=== PATIENT | male | born 1960 | race Caucasian/White ===

== ENCOUNTER 2022-01-17 13:48 | Inpatient (IN) ==
[2022-01-17 18:28] LABS: Basophils % 0.2 %; Eosinophils # 0.1 K/mcL (0.0-0.6); Eosinophils % 0.9 %; Hematocrit 26.3 % (37.5-50.1); Hemoglobin 8.7 g/dL (12.9-16.9); Immature Granulocytes % 0.4 % (0-4); Lymphocytes # 1.3 K/mcL (0.6-4.6); Lymphocytes % 12.6 %; Mean Corpuscular HGB Conc 33.1 g/dL (31.6-35.5); Mean Corpuscular Hemoglobin 27.4 pg (28.0-33.3); Mean Platelet Volume 10.1 fL (9.4-12.4); Monocytes # 0.8 K/mcL (0.0-1.3); Monocytes % 7.2 %; Neutrophils # 8.3 K/mcL (1.6-8.9); Platelet Count 303 K/mcL (140-400); Red Blood Count 3.17 M/mcL (4.19-5.50); Red Cell Distribution Width 14.4 % (11.5-14.5); Segmented Neutrophils % 78.7 %; White Blood Count 10.6 K/mcL (4.3-11.1)
[2022-01-17] MEDS ORDERED: Clindamycin 600 MG/50 ML 600 MG/50 ML IV.SOLN IVPB STA (18:31)
[2022-01-17 18:51] LABS: Alanine Aminotransferase 16 Units/L (7-52); Albumin 2.6 g/dL (3.5-5.7); Albumin/Globulin Ratio 0.7 (1.1-2.2); Alkaline Phosphatase 327 Units/L (34-104); Aspartate Amino Transferase 24 Units/L (13-39); BUN/Creatinine Ratio 23 (6-26); Bilirubin,Direct 0.1 mg/dL (0.0-0.2); Bilirubin,Indirect 0.6 mg/dL (0.0-1.0); Bilirubin,Total 0.7 mg/dL (0.3-1.0); Blood Urea Nitrogen 29 mg/dL (6-20); C-Reactive Protein 95 mg/L (Less than 10); Carbon Dioxide 33 mEq/L (23-29); Chloride 95 mEq/L (98-107); Globulin 3.6 g/dL (2.4-3.5); Glucose 186 mg/dL (70-105); Osmolality,Calculated 291 (280-300); Sodium 135 mEq/L (136-145); Total Protein 6.2 g/dL (6.4-8.9); eGFR For African Americans > 60 (> 60); eGFR For Non-African Americans 58 (> 60)
[2022-01-17] MEDS ORDERED: hydrALAZINE 25 MG TABLET PO ONE (19:18)
[2022-01-17] MEDS ORDERED: Potassium Effervescent 25 MEQ TABLET.EFF PO ONE (19:27)
[2022-01-17] MEDS ORDERED: lisinopriL 20 MG TABLET PO ONE (20:45)
[2022-01-17] MEDS ORDERED: Cefepime HCl 2,000 MG in 0.9 % Sodium Chloride 10 ML IVP ONE (21:11)
[2022-01-17] MEDS ORDERED: Ondansetron ODT 4 MG TAB.RAPDIS SL PRN (21:36)
[2022-01-17] MEDS ORDERED: Melatonin 3 MG TABLET PO PRN (21:36)
[2022-01-17] MEDS ORDERED: Naloxone 0.4 MG/ML INJ IVP PRN (21:36)
[2022-01-17] MEDS ORDERED: *HR* Dextrose 50 % in Water (Syg) 50 ML SYRINGE IVP PRN (21:37)
[2022-01-17] MEDS ORDERED: D5% in Water 1,000 ML IVC PRN (21:37)
[2022-01-17] MEDS ORDERED: Dextrose Gel 15 GM/37.5 ML TUBE PO PRN ×2 (21:37)
[2022-01-17] MEDS ORDERED: *HR* Labetalol 20 MG/4 ML SYRINGE IVP ONE ×2 (21:41→21:56)
[2022-01-17] MEDS ORDERED: Insulin DETEMIR 100 UNIT/ML X5UNITS SUBQ SCH (21:45)
[2022-01-17] MEDS: Insulin LISPRO 300 UNITS/3 ML VIAL SUBQ SCH (23:10)
[2022-01-17] MEDS ORDERED: Furosemide 20 MG/2 ML VIAL IVP ONE (23:45)
[2022-01-18] MEDS ORDERED: Perflutren Lipid Microsphere 1.3 ML in 0.9 % Sodium Chloride 8.7 ML IVP PRN (02:26)
[2022-01-18 03:42] LABS: Hematocrit 25.3 % (37.5-50.1); Hemoglobin 8.5 g/dL (12.9-16.9); Mean Corpuscular HGB Conc 33.6 g/dL (31.6-35.5); Mean Corpuscular Hemoglobin 28.1 pg (28.0-33.3); Mean Corpuscular Volume 83.5 fL (83.0-100.0); Mean Platelet Volume 10.2 fL (9.4-12.4); Platelet Count 295 K/mcL (140-400); Red Blood Count 3.03 M/mcL (4.19-5.50); Red Cell Distribution Width 14.5 % (11.5-14.5); White Blood Count 8.6 K/mcL (4.3-11.1)
[2022-01-18 03:43] LABS: Basophils % 0.4 %; Eosinophils # 0.2 K/mcL (0.0-0.6); Eosinophils % 1.9 %; Hematocrit 25.5 % (37.5-50.1); Hemoglobin 8.4 g/dL (12.9-16.9); Immature Granulocytes % 0.6 % (0-4); Lymphocytes # 1.2 K/mcL (0.6-4.6); Lymphocytes % 14.2 %; Mean Corpuscular HGB Conc 32.9 g/dL (31.6-35.5); Mean Corpuscular Hemoglobin 27.3 pg (28.0-33.3); Mean Corpuscular Volume 82.8 fL (83.0-100.0); Mean Platelet Volume 9.9 fL (9.4-12.4); Monocytes # 0.7 K/mcL (0.0-1.3); Monocytes % 7.7 %; Neutrophils # 6.4 K/mcL (1.6-8.9); Platelet Count 274 K/mcL (140-400); Red Blood Count 3.08 M/mcL (4.19-5.50); Red Cell Distribution Width 14.4 % (11.5-14.5); Segmented Neutrophils % 75.2 %; White Blood Count 8.4 K/mcL (4.3-11.1)
[2022-01-18 03:49] LABS: INR 1.1; Prothrombin Time 11.7 Seconds (9.4-12.1)
[2022-01-18 04:04] LABS: BUN/Creatinine Ratio 22 (6-26); Blood Urea Nitrogen 30 mg/dL (6-20); Calcium 7.7 mg/dL (8.6-10.3); Carbon Dioxide 34 mEq/L (23-29); Chloride 97 mEq/L (98-107); Glucose 182 mg/dL (70-105); Iron 15 mcg/dL (65-175); Magnesium 1.5 mg/dL (1.6-2.6); Osmolality,Calculated 293 (280-300); Potassium 3.3 mEq/L (3.5-5.1); Sodium 136 mEq/L (136-145); eGFR For African Americans > 60 (> 60); eGFR For Non-African Americans 53 (> 60)
[2022-01-18 04:27] LABS: Folate 18.8 ng/mL (3.0-16.0)
[2022-01-18 04:59] LABS: Bacteria,Urine Few per hpf (None-Few); Bilirubin,Urine Negative (Negative); Blood,Urine Small (Negative); Clarity,Urine Clear (Clear); Color,Urine Colorless (Yellow); Glucose,Urine (UA) 100 mg/dL (Normal); Hyaline Casts,Urine Few per lpf (None Seen); Ketones,Urine Negative (Negative); Leukocyte Esterase,Urine Trace (Negative); Mucus,Urine Few per lpf (None-Few); Nitrite,Urine Negative (Negative); PH,Urine 6.5 pH Units (5.0-8.0); Protein,Urine 100 mg/dL (Neg-Trace); Specific Gravity,Urine 1.009 (1.010-1.025); Squamous Epithelial Cell,Urine Few per hpf (None-Few); Urobilinogen,Urine Normal (Normal)
[2022-01-18 05:28] LABS: Protein/Creatinine Ratio,Urine 5.53 mg/mg (0.00-0.20)
[2022-01-18] MEDS: *HR* Heparin 5,000 UNIT/ML VIAL SQ SCH ×3 (05:59→20:51)
[2022-01-18 06:16] LABS: % Iron Saturation 7 % (20-55); Transferrin 151 mg/dL (203-362)
[2022-01-18] MEDS: Insulin LISPRO 300 UNITS/3 ML VIAL SUBQ SCH ×3 (06:29→20:53)
[2022-01-18] MEDS ORDERED: hydrALAZINE 10 MG TABLET PO SCH (09:00)
[2022-01-18] MEDS ORDERED: hydroCHLOROthiazide 25 MG TABLET PO SCH (09:00)
[2022-01-18] MEDS: Aspirin Enteric Coated 81 MG Tablet PO SCH (09:06)
[2022-01-18] MEDS: lisinopriL 20 MG TABLET PO SCH ×2 (09:06→20:50)
[2022-01-18] MEDS: Cefepime HCl 1,000 MG in 0.9 % Sodium Chloride Mini Bag 100 ML IVPB SCH ×3 (09:07→23:45)
[2022-01-18] MEDS ORDERED: Gadolinium Contrast Agent (WT Based) IV PRN (09:34)
[2022-01-18] MEDS ORDERED: *HR* Labetalol 20 MG/4 ML SYRINGE IVP ONE (12:14)
[2022-01-18] MEDS ORDERED: hydrALAZINE 25 MG TABLET PO SCH (15:00)
[2022-01-18] MEDS: hydrALAZINE 25 MG TABLET PO SCH ×4 (15:04→20:50)
[2022-01-19] MEDS: *HR* Heparin 5,000 UNIT/ML VIAL SQ SCH ×2 (05:10→14:41)
[2022-01-19 05:15] LABS: Basophils % 0.4 %; Eosinophils # 0.2 K/mcL (0.0-0.6); Eosinophils % 2.8 %; Hematocrit 23.9 % (37.5-50.1); Hemoglobin 7.6 g/dL (12.9-16.9); Immature Granulocytes % 0.6 % (0-4); Lymphocytes # 0.9 K/mcL (0.6-4.6); Lymphocytes % 11.8 %; Mean Corpuscular HGB Conc 31.8 g/dL (31.6-35.5); Mean Corpuscular Hemoglobin 27.2 pg (28.0-33.3); Mean Corpuscular Volume 85.7 fL (83.0-100.0); Mean Platelet Volume 10.6 fL (9.4-12.4); Monocytes # 0.5 K/mcL (0.0-1.3); Monocytes % 7.4 %; Neutrophils # 5.6 K/mcL (1.6-8.9); Platelet Count 267 K/mcL (140-400); Red Blood Count 2.79 M/mcL (4.19-5.50); Red Cell Distribution Width 14.4 % (11.5-14.5); White Blood Count 7.2 K/mcL (4.3-11.1)
[2022-01-19 05:32] LABS: BUN/Creatinine Ratio 22 (6-26); Blood Urea Nitrogen 30 mg/dL (6-20); Calcium 7.7 mg/dL (8.6-10.3); Carbon Dioxide 30 mEq/L (23-29); Chloride 99 mEq/L (98-107); Glucose 390 mg/dL (70-105); Magnesium 1.9 mg/dL (1.6-2.6); Osmolality,Calculated 298 (280-300); Potassium 4.4 mEq/L (3.5-5.1); Sodium 133 mEq/L (136-145); eGFR For African Americans > 60 (> 60); eGFR For Non-African Americans 53 (> 60)
[2022-01-19 05:40] LABS: Prothrombin Time 11.1 Seconds (9.4-12.1)
[2022-01-19 08:37] LABS: Estimated Average Glucose 258 mg/dl; Hemoglobin A1C 10.6 %
[2022-01-19] MEDS: Insulin LISPRO 300 UNITS/3 ML VIAL SUBQ SCH ×5 (09:36→19:42)
[2022-01-19] MEDS: Aspirin Enteric Coated 81 MG Tablet PO SCH ×2 (10:00→14:21)
[2022-01-19] MEDS: lisinopriL 20 MG TABLET PO SCH ×3 (10:00→19:39)
[2022-01-19] MEDS: Cefepime HCl 1,000 MG in 0.9 % Sodium Chloride Mini Bag 100 ML IVPB SCH ×3 (10:02→17:58)
[2022-01-19] MEDS: hydrALAZINE 25 MG TABLET PO SCH ×3 (10:09→19:40)
[2022-01-19] MEDS: Iron Sucrose Complex 200 MG in 0.9 % Sodium Chloride 100 ML IVPB SCH (12:02)
[2022-01-19] MEDS ORDERED: Acetaminophen 325 MG TABLET PO PRN (17:09)
[2022-01-19] MEDS: *HR* OxyCODONE/APAP 5/325 TABLET PO PRN (17:58)
[2022-01-19 18:19] LABS: Adenovirus F 40/41 PCR Not detected (Not detect); Astrovirus PCR Not detected (Not detect); C.difficile Toxin A/B Gene PCR Not detected (Not detect); Campylobacter by PCR Not detected (Not detect); Cryptosporidium by PCR Not detected (Not detect); Cyclospora cayetanensis PCR Not detected (Not detect); E. coli O157 by PCR Not detected (Not detect); Entamoeba histolytica PCR Not detected (Not detect); Enteroaggregative E.coli(EAEC) Not detected (Not detect); Enteropathogenic E.coli(EPEC) Not detected (Not detect); Enterotoxigenic E.coli (ETEC) Not detected (Not detect); Giardia lamblia PCR Not detected (Not detect); Norovirus GI/GII PCR Not detected (Not detect); Plesiomonas shigelloides PCR Not detected (Not detect); Rotavirus A PCR Not detected (Not detect); Salmonella PCR Not detected (Not detect); Sapovirus PCR Not detected (Not detect); Shig/EnteroinvasiveE coli EIEC Not detected (Not detect); Shigalike tox-prod E coli STEC Not detected (Not detect); Vibrio PCR Not detected (Not detect); Vibrio cholerae PCR Not detected (Not detect); Yersinia enterocolitica PCR Not detected (Not detect)
[2022-01-19] MEDS: Insulin DETEMIR 100 UNIT/ML X5UNITS SUBQ SCH (19:41)
[2022-01-20 00:47] LABS: Basophils % 0.4 %; Eosinophils # 0.3 K/mcL (0.0-0.6); Hematocrit 24.4 % (37.5-50.1); Hemoglobin 7.9 g/dL (12.9-16.9); Immature Granulocytes % 0.5 % (0-4); Lymphocytes # 1.1 K/mcL (0.6-4.6); Lymphocytes % 13.2 %; Mean Corpuscular HGB Conc 32.4 g/dL (31.6-35.5); Mean Corpuscular Hemoglobin 27.5 pg (28.0-33.3); Monocytes # 0.7 K/mcL (0.0-1.3); Monocytes % 7.9 %; Neutrophils # 6.1 K/mcL (1.6-8.9); Platelet Count 290 K/mcL (140-400); Red Blood Count 2.87 M/mcL (4.19-5.50); Red Cell Distribution Width 14.1 % (11.5-14.5); White Blood Count 8.2 K/mcL (4.3-11.1)
[2022-01-20 01:06] LABS: BUN/Creatinine Ratio 22 (6-26); Blood Urea Nitrogen 32 mg/dL (6-20); Calcium 7.6 mg/dL (8.6-10.3); Carbon Dioxide 28 mEq/L (23-29); Chloride 99 mEq/L (98-107); Glucose 158 mg/dL (70-105); Magnesium 1.9 mg/dL (1.6-2.6); Osmolality,Calculated 284 (280-300); Potassium 3.7 mEq/L (3.5-5.1); Sodium 132 mEq/L (136-145); eGFR For African Americans > 60 (> 60); eGFR For Non-African Americans 50 (> 60)
[2022-01-20] MEDS: Cefepime HCl 1,000 MG in 0.9 % Sodium Chloride Mini Bag 100 ML IVPB SCH ×3 (01:54→17:03)
[2022-01-20] MEDS: Aspirin Enteric Coated 81 MG Tablet PO SCH (08:05)
[2022-01-20] MEDS: lisinopriL 20 MG TABLET PO SCH ×2 (08:06→21:19)
[2022-01-20] MEDS: hydrALAZINE 25 MG TABLET PO SCH ×3 (08:06→21:19)
[2022-01-20] MEDS: Insulin LISPRO 300 UNITS/3 ML VIAL SUBQ SCH ×3 (08:14→17:03)
[2022-01-20] MEDS: Iron Sucrose Complex 200 MG in 0.9 % Sodium Chloride 100 ML IVPB SCH (12:01)
[2022-01-20] MEDS: *HR* Labetalol 20 MG/4 ML SYRINGE IVP PRN (12:40)
[2022-01-20] MEDS: *HR* OxyCODONE/APAP 5/325 TABLET PO PRN (17:43)
[2022-01-20] MEDS: Insulin DETEMIR 100 UNIT/ML X5UNITS SUBQ SCH (19:31)
[2022-01-21] MEDS: Insulin LISPRO 300 UNITS/3 ML VIAL SUBQ SCH ×5 (01:07→20:43)
[2022-01-21] MEDS: Cefepime HCl 1,000 MG in 0.9 % Sodium Chloride Mini Bag 100 ML IVPB SCH (02:18)
[2022-01-21 03:06] LABS: Basophils % 0.2 %; Eosinophils # 0.3 K/mcL (0.0-0.6); Eosinophils % 3.8 %; Hematocrit 24.1 % (37.5-50.1); Hemoglobin 7.8 g/dL (12.9-16.9); Immature Granulocytes % 1.1 % (0-4); Lymphocytes % 12.5 %; Mean Corpuscular HGB Conc 32.4 g/dL (31.6-35.5); Mean Corpuscular Hemoglobin 27.9 pg (28.0-33.3); Mean Corpuscular Volume 86.1 fL (83.0-100.0); Mean Platelet Volume 10.6 fL (9.4-12.4); Monocytes # 0.7 K/mcL (0.0-1.3); Monocytes % 8.1 %; Platelet Count 298 K/mcL (140-400); Segmented Neutrophils % 74.3 %; White Blood Count 8.1 K/mcL (4.3-11.1)
[2022-01-21 03:25] LABS: Calcium 7.7 mg/dL (8.6-10.3); Potassium 3.8 mEq/L (3.5-5.1)
[2022-01-21] MEDS: *HR* Labetalol 20 MG/4 ML SYRINGE IVP PRN ×2 (05:36→18:42)
[2022-01-21] MEDS ORDERED: 0.9 % Sodium Chloride 1,000 ML IVC SCH (08:00)
[2022-01-21] MEDS: *HR* OxyCODONE/APAP 5/325 TABLET PO PRN ×2 (08:30→20:22)
[2022-01-21] MEDS: hydrALAZINE 25 MG TABLET PO SCH ×3 (08:30→20:19)
[2022-01-21] MEDS: Aspirin Enteric Coated 81 MG Tablet PO SCH (08:30)
[2022-01-21] MEDS ORDERED: amLODIPine 5 MG TABLET PO SCH (09:00)
[2022-01-21] MEDS: Cefepime HCl 2,000 MG in 0.9 % Sodium Chloride 10 ML IVP SCH ×2 (11:42→20:40)
[2022-01-21] MEDS ORDERED: *HR* FentaNYL (PF) 100 MCG/2 ML VIAL IVP PRN (15:21)
[2022-01-21] MEDS ORDERED: Lidocaine 1% 20 ML MDV ONE (16:20)
[2022-01-21] MEDS ORDERED: Vancomycin 1,000 MG VIAL ONE (16:25)
[2022-01-21] MEDS ORDERED: *HR* FentaNYL (PF) 100 MCG/2 ML VIAL ONE (16:27)
[2022-01-21] MEDS ORDERED: *HR* Propofol 200 MG/20 ML VIAL IVP ONE (16:27)
[2022-01-21] MEDS: Insulin DETEMIR 100 UNIT/ML X5UNITS SUBQ SCH (20:23)
[2022-01-21] MEDS ORDERED: Naloxone 0.4 MG/ML INJ IVP PRN (21:48)
[2022-01-21] MEDS ORDERED: *HR* Labetalol 20 MG/4 ML SYRINGE IVP PRN (21:48)
[2022-01-21] MEDS ORDERED: Acetaminophen 325 MG TABLET PO PRN (21:48)
[2022-01-21] MEDS ORDERED: Perflutren Lipid Microsphere 1.3 ML in 0.9 % Sodium Chloride 8.7 ML IVP PRN (21:48)
[2022-01-21] MEDS ORDERED: D5% in Water 1,000 ML IVC PRN (21:48)
[2022-01-21] MEDS ORDERED: Dextrose Gel 15 GM/37.5 ML TUBE PO PRN ×2 (21:48)
[2022-01-21] MEDS ORDERED: Melatonin 3 MG TABLET PO PRN (21:48)
[2022-01-21] MEDS ORDERED: *HR* Dextrose 50 % in Water (Syg) 50 ML SYRINGE IVP PRN (21:48)
[2022-01-21] MEDS ORDERED: Ondansetron ODT 4 MG TAB.RAPDIS SL PRN (21:48)
[2022-01-22 01:57] LABS: Basophils % 0.4 %; Eosinophils # 0.3 K/mcL (0.0-0.6); Hematocrit 23.7 % (37.5-50.1); Hemoglobin 7.4 g/dL (12.9-16.9); Immature Granulocytes % 0.9 % (0-4); Lymphocytes % 12.2 %; Mean Corpuscular HGB Conc 31.2 g/dL (31.6-35.5); Mean Corpuscular Hemoglobin 27.2 pg (28.0-33.3); Mean Corpuscular Volume 87.1 fL (83.0-100.0); Mean Platelet Volume 10.4 fL (9.4-12.4); Monocytes # 0.6 K/mcL (0.0-1.3); Monocytes % 7.1 %; Neutrophils # 6.3 K/mcL (1.6-8.9); Nucleated Red Blood Cells 0.4 /100 WBC (0); Platelet Count 269 K/mcL (140-400); Red Blood Count 2.72 M/mcL (4.19-5.50); Red Cell Distribution Width 14.2 % (11.5-14.5); Segmented Neutrophils % 76.4 %; White Blood Count 8.2 K/mcL (4.3-11.1)
[2022-01-22 02:13] LABS: BUN/Creatinine Ratio 23 (6-26); Blood Urea Nitrogen 32 mg/dL (6-20); Calcium 7.8 mg/dL (8.6-10.3); Carbon Dioxide 27 mEq/L (23-29); Chloride 103 mEq/L (98-107); Glucose 247 mg/dL (70-105); Osmolality,Calculated 295 (280-300); Potassium 4.3 mEq/L (3.5-5.1); Sodium 135 mEq/L (136-145); eGFR For African Americans > 60 (> 60); eGFR For Non-African Americans 52 (> 60)
[2022-01-22] MEDS: Cefepime HCl 2,000 MG in 0.9 % Sodium Chloride 10 ML IVP SCH ×2 (06:03→18:55)
[2022-01-22] MEDS: Aspirin Enteric Coated 81 MG Tablet PO SCH (08:26)
[2022-01-22] MEDS: NIFEdipine XL (24 HR) 60 MG TAB.ER.24 PO SCH (08:27)
[2022-01-22] MEDS: carvediloL 6.25 MG TABLET PO SCH ×2 (08:27→18:55)
[2022-01-22] MEDS: hydrALAZINE 25 MG TABLET PO SCH ×2 (08:27→15:17)
[2022-01-22] MEDS: Insulin LISPRO 300 UNITS/3 ML VIAL SUBQ SCH ×4 (08:31→20:48)
[2022-01-22] MEDS ORDERED: amLODIPine 5 MG TABLET PO SCH (09:00)
[2022-01-22] MEDS: *HR* OxyCODONE/APAP 5/325 TABLET PO PRN ×2 (15:21→22:39)
[2022-01-22] MEDS ORDERED: Ipratropium/Albuterol Neb 3 ML IH PRN (17:40)
[2022-01-22] MEDS: Insulin DETEMIR 100 UNIT/ML X5UNITS SUBQ SCH (20:47)
[2022-01-22] MEDS ORDERED: Insulin DETEMIR 100 UNIT/ML X5UNITS SUBQ SCH (21:00)
[2022-01-22] MEDS: Furosemide 40 MG/4 ML VIAL IVP SCH (22:40)
[2022-01-23 03:54] LABS: ABG Base Excess 1 mEq/L (-2 to 3); ABG HCO3 25 mEq/L (21-27); ABG Oxygen Saturation 95 % (95-98); ABG PCO2 37 mmHg (35-45); ABG PH 7.44 pH Units (7.32-7.45); ABG PO2 71 mmHg (85-104); ABG TCO2 26 mEq/L (20-26); Blood Gas Modality oxymask
[2022-01-23] MEDS: Cefepime HCl 2,000 MG in 0.9 % Sodium Chloride 10 ML IVP SCH ×2 (05:35→17:00)
[2022-01-23 06:28] LABS: Basophils % 0.2 %; Eosinophils # 0.3 K/mcL (0.0-0.6); Eosinophils % 3.4 %; Hematocrit 22.9 % (37.5-50.1); Hemoglobin 7.3 g/dL (12.9-16.9); Immature Granulocytes % 0.9 % (0-4); Lymphocytes # 1.2 K/mcL (0.6-4.6); Lymphocytes % 14.4 %; Mean Corpuscular HGB Conc 31.9 g/dL (31.6-35.5); Mean Corpuscular Hemoglobin 28.2 pg (28.0-33.3); Mean Corpuscular Volume 88.4 fL (83.0-100.0); Mean Platelet Volume 10.6 fL (9.4-12.4); Monocytes # 0.5 K/mcL (0.0-1.3); Monocytes % 5.6 %; Neutrophils # 6.2 K/mcL (1.6-8.9); Platelet Count 263 K/mcL (140-400); Red Blood Count 2.59 M/mcL (4.19-5.50); Red Cell Distribution Width 14.2 % (11.5-14.5); Segmented Neutrophils % 75.5 %; White Blood Count 8.2 K/mcL (4.3-11.1)
[2022-01-23 07:15] LABS: Magnesium 1.7 mg/dL (1.6-2.6); Potassium 4.7 mEq/L (3.5-5.1)
[2022-01-23] MEDS: Furosemide 40 MG/4 ML VIAL IVP SCH (07:28)
[2022-01-23] MEDS: carvediloL 6.25 MG TABLET PO SCH ×2 (07:28→17:01)
[2022-01-23] MEDS: NIFEdipine XL (24 HR) 60 MG TAB.ER.24 PO SCH (07:28)
[2022-01-23] MEDS: Aspirin Enteric Coated 81 MG Tablet PO SCH (07:28)
[2022-01-23] MEDS: Insulin LISPRO 300 UNITS/3 ML VIAL SUBQ SCH ×4 (07:34→20:40)
[2022-01-23 10:26] LABS: Adenovirus Not Detected (Not Detect); Bordetella Pertussis Not Detected (Not Detect); Chlamydophila pneumoniae Not Detected (Not Detect); Coronavirus 229E Not Detected (Not Detect); Coronavirus HKU1 Not Detected (Not Detect); Coronavirus NL63 Not Detected (Not Detect); Coronavirus OC43 Not Detected (Not Detect); Human Metapneumovirus Not Detected (Not Detect); Human Rhinovirus/Enterovirus DETECTED (Not Detect); Influenza A Subtype 2009 H1 Not Detected (Not Detect); Influenza B Not Detected (Not Detect); Mycoplasma pneumoniae Not Detected (Not Detect); Parainfluenza Virus 1 Not Detected (Not Detect); Parainfluenza Virus 2 Not Detected (Not Detect); Parainfluenza Virus 3 Not Detected (Not Detect); Parainfluenza Virus 4 Not Detected (Not Detect); Respiratory Syncytial Virus Not Detected (Not Detect); SARS-CoV-2 Not Detected (Not Detect)
[2022-01-23] MEDS: Insulin DETEMIR 100 UNIT/ML X5UNITS SUBQ SCH (20:41)
[2022-01-23] MEDS: *HR* OxyCODONE/APAP 5/325 TABLET PO PRN (21:20)
[2022-01-23 23:43] LABS: ABG Base Excess -1 mEq/L (-2 to 3); ABG HCO3 22 mEq/L (21-27); ABG Oxygen Saturation 82 % (95-98); ABG PCO2 31 mmHg (35-45); ABG PH 7.47 pH Units (7.32-7.45); ABG PO2 42 mmHg (85-104); ABG TCO2 23 mEq/L (20-26); Blood Gas Modality OXYMASK
[2022-01-24 02:17] LABS: Basophils % 0.4 %; Eosinophils # 0.3 K/mcL (0.0-0.6); Eosinophils % 2.3 %; Hematocrit 24.1 % (37.5-50.1); Hemoglobin 7.6 g/dL (12.9-16.9); Immature Granulocytes % 0.8 % (0-4); Lymphocytes # 1.1 K/mcL (0.6-4.6); Lymphocytes % 9.9 %; Mean Corpuscular HGB Conc 31.5 g/dL (31.6-35.5); Mean Corpuscular Hemoglobin 27.4 pg (28.0-33.3); Mean Platelet Volume 10.8 fL (9.4-12.4); Monocytes # 0.5 K/mcL (0.0-1.3); Monocytes % 4.8 %; Neutrophils # 9.1 K/mcL (1.6-8.9); Platelet Count 277 K/mcL (140-400); Red Blood Count 2.77 M/mcL (4.19-5.50); Red Cell Distribution Width 14.5 % (11.5-14.5); Segmented Neutrophils % 81.8 %; White Blood Count 11.1 K/mcL (4.3-11.1)
[2022-01-24 02:35] LABS: Calcium 8.2 mg/dL (8.6-10.3); Magnesium 1.6 mg/dL (1.6-2.6); Potassium 4.3 mEq/L (3.5-5.1)
[2022-01-24] MEDS: Cefepime HCl 2,000 MG in 0.9 % Sodium Chloride 10 ML IVP SCH ×2 (05:59→17:41)
[2022-01-24] MEDS ORDERED: *HR* Labetalol 20 MG/4 ML SYRINGE IVP ONE (07:32)
[2022-01-24] MEDS: NIFEdipine XL (24 HR) 60 MG TAB.ER.24 PO SCH (07:55)
[2022-01-24] MEDS: Insulin LISPRO 300 UNITS/3 ML VIAL SUBQ SCH ×4 (07:55→17:46)
[2022-01-24] MEDS: carvediloL 6.25 MG TABLET PO SCH ×2 (07:56→17:38)
[2022-01-24] MEDS: Furosemide 40 MG/4 ML VIAL IVP SCH (07:56)
[2022-01-24] MEDS: Aspirin Enteric Coated 81 MG Tablet PO SCH (07:56)
[2022-01-24 08:41] LABS: INR 1.1; Prothrombin Time 12.6 Seconds (9.4-12.1)
[2022-01-24 08:59] LABS: ABG Base Excess -2 mEq/L (-2 to 3); ABG HCO3 22 mEq/L (21-27); ABG Oxygen Saturation 91 % (95-98); ABG PCO2 32 mmHg (35-45); ABG PH 7.46 pH Units (7.32-7.45); ABG PO2 57 mmHg (85-104); ABG TCO2 23 mEq/L (20-26)
[2022-01-24] MEDS: MetroNIDAZOLE 500 MG/100 ML 500 MG/100 ML BAG IVPB SCH ×2 (12:08→20:14)
[2022-01-24] MEDS: Insulin DETEMIR 100 UNIT/ML X5UNITS SUBQ SCH ×2 (15:10→20:15)
[2022-01-24 19:01] LABS: RBC,Pleural Fluid < 2000 RBC/mcL
[2022-01-24 19:06] LABS: Appearance of Pleural Fl Clear (Clear)
[2022-01-24 19:31] LABS: Glucose,Pleural Fluid 267 mg/dL (No Ref Range); LDH,Pleural Fluid 41 Units/L (No Ref Range); Total Protein,Pleural Fluid < 2.0 g/dL
[2022-01-24 19:48] LABS: Basophils,Pleural Fluid 0 %; Eosinophils,Pleural Fluid 0 %
[2022-01-24] MEDS: *HR* OxyCODONE/APAP 5/325 TABLET PO PRN (22:22)
[2022-01-25] MEDS: Insulin LISPRO 300 UNITS/3 ML VIAL SUBQ SCH ×6 (00:03→20:28)
[2022-01-25 01:22] LABS: Basophils % 0.2 %; Eosinophils # 0.3 K/mcL (0.0-0.6); Hematocrit 23.6 % (37.5-50.1); Hemoglobin 7.4 g/dL (12.9-16.9); Immature Granulocytes % 0.7 % (0-4); Lymphocytes # 1.1 K/mcL (0.6-4.6); Lymphocytes % 12.1 %; Mean Corpuscular HGB Conc 31.4 g/dL (31.6-35.5); Mean Corpuscular Hemoglobin 27.6 pg (28.0-33.3); Mean Corpuscular Volume 88.1 fL (83.0-100.0); Mean Platelet Volume 10.7 fL (9.4-12.4); Monocytes # 0.4 K/mcL (0.0-1.3); Monocytes % 4.7 %; Neutrophils # 7.5 K/mcL (1.6-8.9); Platelet Count 270 K/mcL (140-400); Red Blood Count 2.68 M/mcL (4.19-5.50); Red Cell Distribution Width 14.8 % (11.5-14.5); Segmented Neutrophils % 79.3 %; White Blood Count 9.4 K/mcL (4.3-11.1)
[2022-01-25 01:35] LABS: Magnesium 1.6 mg/dL (1.6-2.6); Potassium 4.1 mEq/L (3.5-5.1)
[2022-01-25] MEDS: Cefepime HCl 2,000 MG in 0.9 % Sodium Chloride 10 ML IVP SCH ×2 (04:39→17:03)
[2022-01-25] MEDS: MetroNIDAZOLE 500 MG/100 ML 500 MG/100 ML BAG IVPB SCH ×3 (04:40→19:51)
[2022-01-25] MEDS: NIFEdipine XL (24 HR) 60 MG TAB.ER.24 PO SCH (08:59)
[2022-01-25] MEDS: Aspirin Enteric Coated 81 MG Tablet PO SCH (08:59)
[2022-01-25] MEDS: carvediloL 6.25 MG TABLET PO SCH ×2 (08:59→17:03)
[2022-01-25] MEDS: Insulin DETEMIR 100 UNIT/ML X5UNITS SUBQ SCH ×2 (09:02→20:28)
[2022-01-25] MEDS: *HR* OxyCODONE/APAP 5/325 TABLET PO PRN (17:03)
[2022-01-26] MEDS: MetroNIDAZOLE 500 MG/100 ML 500 MG/100 ML BAG IVPB SCH ×3 (04:17→20:17)
[2022-01-26 04:39] LABS: Basophils % 0.3 %; Eosinophils # 0.3 K/mcL (0.0-0.6); Eosinophils % 4.3 %; Hematocrit 23.4 % (37.5-50.1); Hemoglobin 7.2 g/dL (12.9-16.9); Immature Granulocytes % 1.2 % (0-4); Lymphocytes # 1.3 K/mcL (0.6-4.6); Lymphocytes % 19.3 %; Mean Corpuscular HGB Conc 30.8 g/dL (31.6-35.5); Mean Corpuscular Hemoglobin 27.5 pg (28.0-33.3); Mean Corpuscular Volume 89.3 fL (83.0-100.0); Mean Platelet Volume 11.2 fL (9.4-12.4); Monocytes # 0.4 K/mcL (0.0-1.3); Monocytes % 5.7 %; Neutrophils # 4.6 K/mcL (1.6-8.9); Platelet Count 262 K/mcL (140-400); Red Blood Count 2.62 M/mcL (4.19-5.50); Red Cell Distribution Width 15.1 % (11.5-14.5); Segmented Neutrophils % 69.2 %; White Blood Count 6.7 K/mcL (4.3-11.1)
[2022-01-26 05:02] LABS: Calcium 7.7 mg/dL (8.6-10.3); Magnesium 1.6 mg/dL (1.6-2.6); Potassium 4.4 mEq/L (3.5-5.1)
[2022-01-26] MEDS: Cefepime HCl 2,000 MG in 0.9 % Sodium Chloride 10 ML IVP SCH ×2 (05:55→18:52)
[2022-01-26] MEDS: carvediloL 6.25 MG TABLET PO SCH ×2 (09:38→16:34)
[2022-01-26] MEDS: NIFEdipine XL (24 HR) 60 MG TAB.ER.24 PO SCH (09:38)
[2022-01-26] MEDS: Aspirin Enteric Coated 81 MG Tablet PO SCH (09:38)
[2022-01-26] MEDS: Insulin DETEMIR 100 UNIT/ML X5UNITS SUBQ SCH ×2 (09:39→20:51)
[2022-01-26] MEDS: Insulin LISPRO 300 UNITS/3 ML VIAL SUBQ SCH ×4 (09:39→20:49)
[2022-01-26] MEDS: Isosorbide MONOnitrate (24 HR) 60 MG TAB.ER.24H PO SCH (12:03)
[2022-01-26] MEDS ORDERED: Cyanocobalamin (B-12) 1,000 MCG/ML VIAL SQ ONE (12:12)
[2022-01-26] MEDS: Lactobacillus 1 EACH CAP.SPRINK PO SCH (20:18)
[2022-01-27 03:37] LABS: Fluid Source for Albumin PLEURAL FL
[2022-01-27] MEDS: MetroNIDAZOLE 500 MG/100 ML 500 MG/100 ML BAG IVPB SCH ×2 (04:10→12:13)
[2022-01-27 05:15] LABS: Basophils % 0.4 %; Eosinophils # 0.3 K/mcL (0.0-0.6); Eosinophils % 3.5 %; Hematocrit 23.6 % (37.5-50.1); Hemoglobin 7.2 g/dL (12.9-16.9); Lymphocytes # 1.3 K/mcL (0.6-4.6); Lymphocytes % 16.6 %; Mean Corpuscular HGB Conc 30.5 g/dL (31.6-35.5); Mean Corpuscular Hemoglobin 27.2 pg (28.0-33.3); Mean Corpuscular Volume 89.1 fL (83.0-100.0); Mean Platelet Volume 10.5 fL (9.4-12.4); Monocytes # 0.5 K/mcL (0.0-1.3); Monocytes % 6.3 %; Neutrophils # 5.8 K/mcL (1.6-8.9); Platelet Count 253 K/mcL (140-400); Red Blood Count 2.65 M/mcL (4.19-5.50); Red Cell Distribution Width 15.5 % (11.5-14.5); Segmented Neutrophils % 72.2 %
[2022-01-27] MEDS: Cefepime HCl 2,000 MG in 0.9 % Sodium Chloride 10 ML IVP SCH (05:28)
[2022-01-27 05:35] LABS: Calcium 7.8 mg/dL (8.6-10.3); Magnesium 1.6 mg/dL (1.6-2.6); Potassium 4.2 mEq/L (3.5-5.1)
[2022-01-27] MEDS: Insulin LISPRO 300 UNITS/3 ML VIAL SUBQ SCH ×4 (08:16→21:18)
[2022-01-27] MEDS ORDERED: levoFLOXacin 250 MG TABLET PO SCH (09:00)
[2022-01-27] MEDS: carvediloL 6.25 MG TABLET PO SCH ×2 (09:01→17:32)
[2022-01-27] MEDS: Aspirin Enteric Coated 81 MG Tablet PO SCH (09:01)
[2022-01-27] MEDS: NIFEdipine XL (24 HR) 60 MG TAB.ER.24 PO SCH (09:01)
[2022-01-27] MEDS: Lactobacillus 1 EACH CAP.SPRINK PO SCH ×2 (09:01→21:13)
[2022-01-27] MEDS: Isosorbide MONOnitrate (24 HR) 60 MG TAB.ER.24H PO SCH (09:01)
[2022-01-27] MEDS: Insulin DETEMIR 100 UNIT/ML X5UNITS SUBQ SCH ×2 (09:01→21:19)
[2022-01-27] MEDS: levoFLOXacin 250 MG TABLET PO SCH (12:32)
[2022-01-27] MEDS: Miconazole 2% ointment 141 APPL/141 GM TUBE TP SCH ×2 (15:12→21:45)
[2022-01-27] MEDS: Furosemide 40 MG/4 ML VIAL IVP SCH (15:44)
[2022-01-27] MEDS: *HR* OxyCODONE/APAP 5/325 TABLET PO PRN (16:32)
[2022-01-27] MEDS ORDERED: Saline Nasal Spray 44 ML BOTTLE NS PRN (22:17)
[2022-01-28 03:10] LABS: Basophils % 0.3 %; Eosinophils # 0.3 K/mcL (0.0-0.6); Hematocrit 22.9 % (37.5-50.1); Immature Granulocytes % 1.3 % (0-4); Lymphocytes # 1.2 K/mcL (0.6-4.6); Lymphocytes % 18.7 %; Mean Corpuscular HGB Conc 30.6 g/dL (31.6-35.5); Mean Corpuscular Hemoglobin 27.2 pg (28.0-33.3); Mean Corpuscular Volume 89.1 fL (83.0-100.0); Mean Platelet Volume 11.1 fL (9.4-12.4); Monocytes # 0.4 K/mcL (0.0-1.3); Monocytes % 6.5 %; Neutrophils # 4.2 K/mcL (1.6-8.9); Platelet Count 240 K/mcL (140-400); Red Blood Count 2.57 M/mcL (4.19-5.50); Red Cell Distribution Width 15.3 % (11.5-14.5); Segmented Neutrophils % 68.2 %; White Blood Count 6.2 K/mcL (4.3-11.1)
[2022-01-28 03:29] LABS: Calcium 7.9 mg/dL (8.6-10.3); Magnesium 1.6 mg/dL (1.6-2.6); Potassium 4.2 mEq/L (3.5-5.1)
[2022-01-28] MEDS: Furosemide 40 MG/4 ML VIAL IVP SCH (08:59)
[2022-01-28] MEDS: Insulin DETEMIR 100 UNIT/ML X5UNITS SUBQ SCH (08:59)
[2022-01-28] MEDS: NIFEdipine XL (24 HR) 60 MG TAB.ER.24 PO SCH (09:00)
[2022-01-28] MEDS: Isosorbide MONOnitrate (24 HR) 60 MG TAB.ER.24H PO SCH (09:00)
[2022-01-28] MEDS: Lactobacillus 1 EACH CAP.SPRINK PO SCH (09:00)
[2022-01-28] MEDS: levoFLOXacin 250 MG TABLET PO SCH (09:00)
[2022-01-28] MEDS: Insulin LISPRO 300 UNITS/3 ML VIAL SUBQ SCH ×2 (09:00→12:29)
[2022-01-28] MEDS: Miconazole 2% ointment 141 APPL/141 GM TUBE TP SCH (09:00)
[2022-01-28] MEDS: Aspirin Enteric Coated 81 MG Tablet PO SCH (09:00)
[2022-01-28] MEDS: carvediloL 6.25 MG TABLET PO SCH (09:00)
[2022-01-28 11:15] VITALS: BP 169/81; PULSE 84; TEMP 97.4; O2SAT 92
== END 2022-01-28 14:02 | disposition home health service (06) | DRG 616 ==
LOC: 4WAOSI 13:48 → EMEROOARM 13:48 → SUATTDRO 21:26 → 4WAOSI 22:26 → SUATTDRO 01-20 15:11 → 3ANU 01-20 20:29
PROVIDERS: ADMIT Internal Medicine; ATTEND Pharmacist

== ENCOUNTER 2022-01-29 16:44 | Inpatient (IN) ==
[2022-01-29] MEDS ORDERED: Acetaminophen 325 MG TABLET PO PRN (21:49)
[2022-01-29] MEDS ORDERED: *HR* HYDROcodone/Acet 5/325 mg TABLET PO PRN (21:49)
[2022-01-29] MEDS ORDERED: Melatonin 3 MG TABLET PO PRN (21:49)
[2022-01-29] MEDS ORDERED: Naloxone 0.4 MG/ML INJ IVP PRN (21:49)
[2022-01-29] MEDS ORDERED: Ondansetron ODT 4 MG TAB.RAPDIS SL PRN (21:49)
[2022-01-29] MEDS ORDERED: *HR* OxyCODONE Immed Rel 5 MG TABLET PO PRN (21:49)
[2022-01-29] MEDS ORDERED: *HR* Dextrose 50 % in Water (Syg) 50 ML SYRINGE IVP PRN (21:57)
[2022-01-29] MEDS ORDERED: Dextrose Gel 15 GM/37.5 ML TUBE PO PRN ×2 (21:57)
[2022-01-29] MEDS ORDERED: D5% in Water 1,000 ML IVC PRN (21:57)
[2022-01-29] MEDS ORDERED: Insulin LISPRO 300 UNITS/3 ML VIAL SUBQ SCH (22:00)
[2022-01-30] MEDS: Insulin LISPRO 300 UNITS/3 ML VIAL SUBQ SCH ×3 (00:13→17:47)
[2022-01-30] MEDS ORDERED: Insulin DETEMIR 100 UNIT/ML X5UNITS SUBQ SCH ×5 (00:15→21:00)
[2022-01-30 00:24] LABS: Adenovirus Not Detected (Not Detect); Bordetella Pertussis Not Detected (Not Detect); Chlamydophila pneumoniae Not Detected (Not Detect); Coronavirus 229E Not Detected (Not Detect); Coronavirus HKU1 Not Detected (Not Detect); Coronavirus NL63 Not Detected (Not Detect); Coronavirus OC43 Not Detected (Not Detect); Human Metapneumovirus Not Detected (Not Detect); Human Rhinovirus/Enterovirus Not Detected (Not Detect); Influenza A Subtype 2009 H1 Not Detected (Not Detect); Influenza B Not Detected (Not Detect); Mycoplasma pneumoniae Not Detected (Not Detect); Parainfluenza Virus 1 Not Detected (Not Detect); Parainfluenza Virus 2 Not Detected (Not Detect); Parainfluenza Virus 3 Not Detected (Not Detect); Parainfluenza Virus 4 Not Detected (Not Detect); Respiratory Syncytial Virus Not Detected (Not Detect); SARS-CoV-2 Not Detected (Not Detect)
[2022-01-30 01:07] LABS: Basophils % 0.1 %; Eosinophils % 0.2 %; Hematocrit 23.7 % (37.5-50.1); Hemoglobin 6.9 g/dL (12.9-16.9); Immature Granulocytes % 1.3 % (0-4); Lymphocytes # 0.7 K/mcL (0.6-4.6); Lymphocytes % 8.3 %; Mean Corpuscular HGB Conc 29.1 g/dL (31.6-35.5); Mean Corpuscular Hemoglobin 28.2 pg (28.0-33.3); Mean Corpuscular Volume 96.7 fL (83.0-100.0); Mean Platelet Volume 11.4 fL (9.4-12.4); Monocytes # 0.2 K/mcL (0.0-1.3); Monocytes % 2.4 %; Neutrophils # 7.2 K/mcL (1.6-8.9); Platelet Count 218 K/mcL (140-400); Red Blood Count 2.45 M/mcL (4.19-5.50); Red Cell Distribution Width 14.8 % (11.5-14.5); Segmented Neutrophils % 87.7 %; White Blood Count 8.3 K/mcL (4.3-11.1)
[2022-01-30 01:29] LABS: Calcium 7.6 mg/dL (8.6-10.3); Magnesium 1.8 mg/dL (1.6-2.6); Phosphorous 6.5 mg/dL (2.7-4.5); Potassium 4.9 mEq/L (3.5-5.1)
[2022-01-30 01:36] LABS: Calcium 7.7 mg/dL (8.6-10.3); Potassium 4.9 mEq/L (3.5-5.1)
[2022-01-30] MEDS ORDERED: Insulin Regular, Human 100 UNIT/ML IV PRN ×3 (06:37→07:54)
[2022-01-30] MEDS ORDERED: D5% in 0.45% NACL w KCl 20 MEQ/1,000 ML MLS IVC PRN ×2 (06:37→07:54)
[2022-01-30] MEDS ORDERED: D5% in 0.45% NACL 1,000 ML IVC PRN (06:37)
[2022-01-30] MEDS ORDERED: Insulin Regular, Human 100 UNIT/ML IV ONE (06:37)
[2022-01-30] MEDS ORDERED: *HR* Dextrose 50 % in Water (Syg) 50 ML SYRINGE IVP PRN ×4 (06:37→15:49)
[2022-01-30] MEDS ORDERED: 0.9 % Sodium Chloride w KCl 20 MEQ/1,000 ML MLS IVC SCH ×2 (06:45)
[2022-01-30] MEDS ORDERED: 0.9 % Sodium Chloride 1,000 ML IVC SCH ×3 (06:45)
[2022-01-30] MEDS ORDERED: 0.45 % Sodium Chloride w/KCl 20 MEQ/1,000 ML MLS IVC SCH ×2 (06:45)
[2022-01-30 07:19] LABS: Basophils % 0.3 %; Eosinophils % 0.4 %; Hematocrit 22.6 % (37.5-50.1); Hemoglobin 6.9 g/dL (12.9-16.9); Immature Granulocytes % 1.4 % (0-4); Lymphocytes # 0.9 K/mcL (0.6-4.6); Lymphocytes % 11.1 %; Mean Corpuscular HGB Conc 30.5 g/dL (31.6-35.5); Mean Corpuscular Hemoglobin 27.8 pg (28.0-33.3); Mean Corpuscular Volume 91.1 fL (83.0-100.0); Mean Platelet Volume 11.4 fL (9.4-12.4); Monocytes # 0.7 K/mcL (0.0-1.3); Monocytes % 8.6 %; Platelet Count 215 K/mcL (140-400); Red Blood Count 2.48 M/mcL (4.19-5.50); Red Cell Distribution Width 14.9 % (11.5-14.5); Segmented Neutrophils % 78.2 %; White Blood Count 7.7 K/mcL (4.3-11.1)
[2022-01-30 07:22] LABS: VBG HCO3 12 mEq/L (21-27); VBG PCO2 20 mmHg (41-51); VBG PH 7.36 pH Units (7.32-7.42); VBG PO2 104 mmHg (25-50)
[2022-01-30] MEDS ORDERED: Insulin LISPRO 300 UNITS/3 ML VIAL SUBQ SCH ×2 (07:30)
[2022-01-30] MEDS: 0.45 % Sodium Chloride w/KCl 20 MEQ/1,000 ML MLS IVC SCH ×4 (08:36→17:27)
[2022-01-30 09:31] LABS: Albumin 2.4 g/dL (3.5-5.7); Albumin/Globulin Ratio 0.8 (1.1-2.2); Bilirubin,Total 0.4 mg/dL (0.3-1.0); Calcium 7.4 mg/dL (8.6-10.3); Magnesium 1.8 mg/dL (1.6-2.6); Phosphorous 5.8 mg/dL (2.7-4.5); Potassium 4.8 mEq/L (3.5-5.1); Total Protein 5.4 g/dL (6.4-8.9)
[2022-01-30 12:23] LABS: Estimated Average Glucose 229 mg/dl; Hemoglobin A1C 9.6 %
[2022-01-30] MEDS ORDERED: tiZANidine 4 MG TABLET PO PRN ×3 (12:58→17:20)
[2022-01-30] MEDS ORDERED: *HR* HYDROcodone/Acet 5/325 mg TABLET PO PRN ×2 (12:58→15:49)
[2022-01-30] MEDS ORDERED: Iron Sucrose Complex 200 MG in 0.9 % Sodium Chloride 100 ML IVPB ONE (14:00)
[2022-01-30 14:44] LABS: Potassium 4.3 mEq/L (3.5-5.1)
[2022-01-30 16:30] LABS: Calcium 7.8 mg/dL (8.6-10.3)
[2022-01-30] MEDS ORDERED: carvediloL 6.25 MG TABLET PO SCH ×2 (17:00)
[2022-01-30] MEDS: Lactobacillus 1 EACH CAP.SPRINK PO SCH (20:17)
[2022-01-30] MEDS ORDERED: Lactobacillus 1 EACH CAP.SPRINK PO SCH ×2 (21:00)
[2022-01-31 01:50] LABS: Calcium 7.9 mg/dL (8.6-10.3); Potassium 3.9 mEq/L (3.5-5.1)
[2022-01-31] MEDS: *HR* Dextrose 50 % in Water (Syg) 50 ML SYRINGE IVP PRN ×2 (01:58→05:24)
[2022-01-31] MEDS ORDERED: *HR* Dextrose 50 % in Water (Syg) 50 ML SYRINGE IVP PRN (02:05)
[2022-01-31] MEDS ORDERED: Dextrose 4 GM Chewable Tablets PO PRN ×2 (02:05)
[2022-01-31] MEDS ORDERED: D5% in Water 1,000 ML IVC PRN (02:05)
[2022-01-31 02:12] LABS: Basophils % 0.3 %; Eosinophils # 0.2 K/mcL (0.0-0.6); Hematocrit 23.3 % (37.5-50.1); Hemoglobin 7.5 g/dL (12.9-16.9); Immature Granulocytes % 0.9 % (0-4); Lymphocytes # 1.4 K/mcL (0.6-4.6); Lymphocytes % 14.8 %; Mean Corpuscular HGB Conc 32.2 g/dL (31.6-35.5); Mean Corpuscular Hemoglobin 27.2 pg (28.0-33.3); Mean Platelet Volume 11.6 fL (9.4-12.4); Monocytes # 0.7 K/mcL (0.0-1.3); Monocytes % 6.9 %; Neutrophils # 7.1 K/mcL (1.6-8.9); Nucleated Red Blood Cells 0.2 /100 WBC (0); Platelet Count 285 K/mcL (140-400); Red Blood Count 2.76 M/mcL (4.19-5.50); Red Cell Distribution Width 15.6 % (11.5-14.5); Segmented Neutrophils % 75.1 %; White Blood Count 9.5 K/mcL (4.3-11.1)
[2022-01-31 02:32] LABS: Mean Corpuscular Volume 84.4 fL (83.0-100.0)
[2022-01-31] MEDS: Insulin LISPRO 300 UNITS/3 ML VIAL SUBQ SCH ×3 (07:56→17:19)
[2022-01-31] MEDS: Insulin DETEMIR 100 UNIT/ML X5UNITS SUBQ SCH ×2 (07:59→20:25)
[2022-01-31] MEDS ORDERED: carvediloL 6.25 MG TABLET PO SCH (08:00)
[2022-01-31] MEDS: carvediloL 25 MG TABLET PO SCH ×2 (08:04→17:18)
[2022-01-31] MEDS: Lactobacillus 1 EACH CAP.SPRINK PO SCH ×2 (08:04→20:25)
[2022-01-31] MEDS: Aspirin Enteric Coated 81 MG Tablet PO SCH (08:04)
[2022-01-31] MEDS: NIFEdipine XL (24 HR) 60 MG TAB.ER.24 PO SCH (08:04)
[2022-01-31] MEDS: Isosorbide MONOnitrate (24 HR) 60 MG TAB.ER.24H PO SCH (08:04)
[2022-01-31] MEDS: levoFLOXacin 750 MG TABLET PO SCH (08:04)
[2022-01-31] MEDS ORDERED: Isosorbide MONOnitrate (24 HR) 60 MG TAB.ER.24H PO SCH ×2 (09:00)
[2022-01-31] MEDS ORDERED: Aspirin Enteric Coated 81 MG Tablet PO SCH ×2 (09:00)
[2022-01-31] MEDS ORDERED: NIFEdipine XL (24 HR) 60 MG TAB.ER.24 PO SCH ×2 (09:00)
[2022-01-31] MEDS ORDERED: levoFLOXacin 750 MG TABLET PO SCH ×2 (09:00)
[2022-01-31] MEDS ORDERED: Furosemide 40 MG TABLET PO SCH (09:00)
[2022-01-31] MEDS: *HR* HYDROcodone/Acet 5/325 mg TABLET PO PRN (15:39)
[2022-02-01 03:29] LABS: Basophils % 0.5 %; Eosinophils # 0.1 K/mcL (0.0-0.6); Eosinophils % 1.7 %; Hemoglobin 7.6 g/dL (12.9-16.9); Immature Granulocytes % 0.7 % (0-4); Lymphocytes % 17.4 %; Mean Corpuscular Hemoglobin 28.6 pg (28.0-33.3); Mean Corpuscular Volume 86.5 fL (83.0-100.0); Mean Platelet Volume 11.7 fL (9.4-12.4); Monocytes # 0.5 K/mcL (0.0-1.3); Monocytes % 8.4 %; Neutrophils # 4.2 K/mcL (1.6-8.9); Nucleated Red Blood Cells 0.5 /100 WBC (0); Platelet Count 259 K/mcL (140-400); Red Blood Count 2.66 M/mcL (4.19-5.50); Red Cell Distribution Width 16.8 % (11.5-14.5); Segmented Neutrophils % 71.3 %; White Blood Count 5.9 K/mcL (4.3-11.1)
[2022-02-01 03:50] LABS: Calcium 7.9 mg/dL (8.6-10.3); Magnesium 1.8 mg/dL (1.6-2.6); Phosphorous 4.2 mg/dL (2.7-4.5); Potassium 4.9 mEq/L (3.5-5.1)
[2022-02-01] MEDS: *HR* Enoxaparin 40 MG/0.4 ML SYRINGE SQ SCH (05:54)
[2022-02-01] MEDS: NIFEdipine XL (24 HR) 60 MG TAB.ER.24 PO SCH (08:53)
[2022-02-01] MEDS: Aspirin Enteric Coated 81 MG Tablet PO SCH (08:53)
[2022-02-01] MEDS: Lactobacillus 1 EACH CAP.SPRINK PO SCH ×2 (08:53→20:58)
[2022-02-01] MEDS: carvediloL 25 MG TABLET PO SCH ×2 (08:53→16:15)
[2022-02-01] MEDS: Isosorbide MONOnitrate (24 HR) 60 MG TAB.ER.24H PO SCH (08:53)
[2022-02-01] MEDS: Insulin LISPRO 300 UNITS/3 ML VIAL SUBQ SCH ×5 (08:58→16:15)
[2022-02-01] MEDS: Insulin DETEMIR 100 UNIT/ML X5UNITS SUBQ SCH ×2 (08:58→20:58)
[2022-02-01] MEDS: *HR* HYDROcodone/Acet 5/325 mg TABLET PO PRN (16:14)
[2022-02-02] MEDS ORDERED: Ipratropium/Albuterol Neb 3 ML IH SCH (00:19)
[2022-02-02] MEDS ORDERED: Ipratropium/Albuterol Neb 3 ML IH PRN (01:11)
[2022-02-02] MEDS: *HR* Enoxaparin 40 MG/0.4 ML SYRINGE SQ SCH (05:46)
[2022-02-02 08:15] LABS: Hematocrit 24.7 % (37.5-50.1); Hemoglobin 7.9 g/dL (12.9-16.9)
[2022-02-02 08:26] LABS: Calcium 7.9 mg/dL (8.6-10.3); Potassium 4.7 mEq/L (3.5-5.1)
[2022-02-02] MEDS: Furosemide 20 MG/2 ML VIAL IVP SCH ×2 (09:29→20:09)
[2022-02-02] MEDS: Insulin DETEMIR 100 UNIT/ML X5UNITS SUBQ SCH ×2 (09:30→20:09)
[2022-02-02] MEDS: Insulin LISPRO 300 UNITS/3 ML VIAL SUBQ SCH ×6 (09:30→16:11)
[2022-02-02] MEDS: NIFEdipine XL (24 HR) 60 MG TAB.ER.24 PO SCH (09:30)
[2022-02-02] MEDS: carvediloL 25 MG TABLET PO SCH ×2 (09:31→16:29)
[2022-02-02] MEDS: Aspirin Enteric Coated 81 MG Tablet PO SCH (09:31)
[2022-02-02] MEDS: lisinopriL 10 MG TABLET PO SCH (09:31)
[2022-02-02] MEDS: levoFLOXacin 750 MG TABLET PO SCH (09:31)
[2022-02-02] MEDS: Lactobacillus 1 EACH CAP.SPRINK PO SCH ×2 (09:31→20:09)
[2022-02-02] MEDS: Isosorbide MONOnitrate (24 HR) 60 MG TAB.ER.24H PO SCH (09:31)
[2022-02-02] MEDS: *HR* HYDROcodone/Acet 5/325 mg TABLET PO PRN (16:29)
[2022-02-03 02:01] LABS: Basophils % 0.5 %; Eosinophils # 0.2 K/mcL (0.0-0.6); Eosinophils % 4.1 %; Hematocrit 24.4 % (37.5-50.1); Hemoglobin 7.7 g/dL (12.9-16.9); Immature Granulocytes % 0.7 % (0-4); Lymphocytes # 1.2 K/mcL (0.6-4.6); Lymphocytes % 20.7 %; Mean Corpuscular HGB Conc 31.6 g/dL (31.6-35.5); Mean Corpuscular Hemoglobin 28.5 pg (28.0-33.3); Mean Corpuscular Volume 90.4 fL (83.0-100.0); Mean Platelet Volume 11.6 fL (9.4-12.4); Monocytes # 0.6 K/mcL (0.0-1.3); Monocytes % 9.7 %; Neutrophils # 3.8 K/mcL (1.6-8.9); Nucleated Red Blood Cells 0.5 /100 WBC (0); Platelet Count 221 K/mcL (140-400); Red Cell Distribution Width 17.2 % (11.5-14.5); Segmented Neutrophils % 64.3 %; White Blood Count 5.9 K/mcL (4.3-11.1)
[2022-02-03 02:22] LABS: Magnesium 1.7 mg/dL (1.6-2.6); Phosphorous 4.3 mg/dL (2.7-4.5); Potassium 4.6 mEq/L (3.5-5.1)
[2022-02-03] MEDS: *HR* Enoxaparin 40 MG/0.4 ML SYRINGE SQ SCH (05:22)
[2022-02-03] MEDS ORDERED: SODIUM CHLORIDE 0.45% IVC SCH (07:26)
[2022-02-03] MEDS ORDERED: SODIUM BICARBONATE IVC SCH (07:26)
[2022-02-03] MEDS: Aspirin Enteric Coated 81 MG Tablet PO SCH (09:12)
[2022-02-03] MEDS: carvediloL 25 MG TABLET PO SCH ×2 (09:12→16:39)
[2022-02-03] MEDS: Lactobacillus 1 EACH CAP.SPRINK PO SCH ×2 (09:12→21:38)
[2022-02-03] MEDS: Isosorbide MONOnitrate (24 HR) 60 MG TAB.ER.24H PO SCH (09:13)
[2022-02-03] MEDS: lisinopriL 10 MG TABLET PO SCH (09:13)
[2022-02-03] MEDS: NIFEdipine XL (24 HR) 60 MG TAB.ER.24 PO SCH (09:13)
[2022-02-03] MEDS: Insulin LISPRO 300 UNITS/3 ML VIAL SUBQ SCH ×6 (09:13→16:49)
[2022-02-03] MEDS: Insulin DETEMIR 100 UNIT/ML X5UNITS SUBQ SCH ×2 (09:15→21:39)
[2022-02-03] MEDS: *HR* HYDROcodone/Acet 5/325 mg TABLET PO PRN ×2 (09:36→21:38)
[2022-02-04 03:00] LABS: Basophils % 0.5 %; Eosinophils # 0.4 K/mcL (0.0-0.6); Eosinophils % 5.3 %; Hematocrit 25.3 % (37.5-50.1); Hemoglobin 7.9 g/dL (12.9-16.9); Immature Granulocytes % 0.5 % (0-4); Lymphocytes # 1.1 K/mcL (0.6-4.6); Lymphocytes % 16.8 %; Mean Corpuscular HGB Conc 31.2 g/dL (31.6-35.5); Mean Corpuscular Hemoglobin 28.2 pg (28.0-33.3); Mean Corpuscular Volume 90.4 fL (83.0-100.0); Mean Platelet Volume 11.5 fL (9.4-12.4); Monocytes # 0.5 K/mcL (0.0-1.3); Monocytes % 7.7 %; Neutrophils # 4.6 K/mcL (1.6-8.9); Platelet Count 225 K/mcL (140-400); Red Cell Distribution Width 17.7 % (11.5-14.5); Segmented Neutrophils % 69.2 %; White Blood Count 6.6 K/mcL (4.3-11.1)
[2022-02-04 03:23] LABS: Calcium 7.8 mg/dL (8.6-10.3); Magnesium 1.7 mg/dL (1.6-2.6); Phosphorous 3.8 mg/dL (2.7-4.5); Potassium 4.4 mEq/L (3.5-5.1)
[2022-02-04] MEDS: *HR* Enoxaparin 40 MG/0.4 ML SYRINGE SQ SCH (06:26)
[2022-02-04] MEDS: levoFLOXacin 750 MG TABLET PO SCH (07:41)
[2022-02-04] MEDS: NIFEdipine XL (24 HR) 60 MG TAB.ER.24 PO SCH (07:41)
[2022-02-04] MEDS: lisinopriL 10 MG TABLET PO SCH (07:41)
[2022-02-04] MEDS: carvediloL 25 MG TABLET PO SCH ×2 (07:41→17:13)
[2022-02-04] MEDS: Isosorbide MONOnitrate (24 HR) 60 MG TAB.ER.24H PO SCH (07:41)
[2022-02-04] MEDS: Lactobacillus 1 EACH CAP.SPRINK PO SCH ×2 (07:41→23:50)
[2022-02-04] MEDS: Aspirin Enteric Coated 81 MG Tablet PO SCH (07:41)
[2022-02-04] MEDS: Insulin DETEMIR 100 UNIT/ML X5UNITS SUBQ SCH ×2 (07:46→23:51)
[2022-02-04] MEDS: Insulin LISPRO 300 UNITS/3 ML VIAL SUBQ SCH ×6 (07:50→16:46)
[2022-02-04] MEDS: *HR* HYDROcodone/Acet 5/325 mg TABLET PO PRN (23:50)
[2022-02-05] MEDS: *HR* Enoxaparin 40 MG/0.4 ML SYRINGE SQ SCH (05:23)
[2022-02-05 05:27] LABS: Hematocrit 26.6 % (37.5-50.1); Hemoglobin 8.3 g/dL (12.9-16.9)
[2022-02-05 05:43] LABS: BUN/Creatinine Ratio 47 (6-26); Blood Urea Nitrogen 65 mg/dL (6-20); Calcium 7.8 mg/dL (8.6-10.3); Carbon Dioxide 23 mEq/L (23-29); Chloride 106 mEq/L (98-107); Glucose 338 mg/dL (70-105); Magnesium 1.6 mg/dL (1.6-2.6); Osmolality,Calculated 316 (280-300); Phosphorous 3.8 mg/dL (2.7-4.5); Potassium 4.3 mEq/L (3.5-5.1); Sodium 137 mEq/L (136-145); eGFR For African Americans > 60 (> 60); eGFR For Non-African Americans 52 (> 60)
[2022-02-05] MEDS: Insulin LISPRO 300 UNITS/3 ML VIAL SUBQ SCH ×6 (07:28→15:46)
[2022-02-05] MEDS: Aspirin Enteric Coated 81 MG Tablet PO SCH (07:28)
[2022-02-05] MEDS: Isosorbide MONOnitrate (24 HR) 60 MG TAB.ER.24H PO SCH (07:28)
[2022-02-05] MEDS: carvediloL 25 MG TABLET PO SCH ×2 (07:28→15:58)
[2022-02-05] MEDS: NIFEdipine XL (24 HR) 60 MG TAB.ER.24 PO SCH (07:28)
[2022-02-05] MEDS: Insulin DETEMIR 100 UNIT/ML X5UNITS SUBQ SCH ×2 (07:28→20:49)
[2022-02-05] MEDS: lisinopriL 10 MG TABLET PO SCH (07:28)
[2022-02-05] MEDS: Lactobacillus 1 EACH CAP.SPRINK PO SCH ×2 (07:28→20:48)
[2022-02-05] MEDS ORDERED: lisinopriL 10 MG TABLET PO ONE (07:45)
[2022-02-05] MEDS ORDERED: lisinopriL 20 MG TABLET PO SCH (09:00)
[2022-02-05] MEDS: Furosemide 40 MG TABLET PO SCH (11:18)
[2022-02-05] MEDS: *HR* HYDROcodone/Acet 5/325 mg TABLET PO PRN (21:05)
[2022-02-06] MEDS: *HR* Enoxaparin 40 MG/0.4 ML SYRINGE SQ SCH (05:03)
[2022-02-06] MEDS: Insulin LISPRO 300 UNITS/3 ML VIAL SUBQ SCH ×6 (08:02→17:34)
[2022-02-06] MEDS: carvediloL 25 MG TABLET PO SCH (08:04)
[2022-02-06] MEDS: Isosorbide MONOnitrate (24 HR) 60 MG TAB.ER.24H PO SCH (08:04)
[2022-02-06] MEDS: Furosemide 40 MG TABLET PO SCH (08:04)
[2022-02-06] MEDS: Aspirin Enteric Coated 81 MG Tablet PO SCH (08:05)
[2022-02-06] MEDS: Lactobacillus 1 EACH CAP.SPRINK PO SCH ×2 (08:05→20:59)
[2022-02-06] MEDS: Insulin DETEMIR 100 UNIT/ML X5UNITS SUBQ SCH ×2 (08:11→20:59)
[2022-02-06] MEDS ORDERED: lisinopriL 20 MG TABLET PO SCH (09:00)
[2022-02-06] MEDS ORDERED: NIFEdipine XL (24 HR) 30 MG TAB.ER.24 PO SCH (09:00)
[2022-02-06] MEDS ORDERED: Ringers Solution, Lactated 1,000 ML ONE ×2 (10:59→13:05)
[2022-02-06] MEDS ORDERED: Ringers Solution, Lactated 500 ML IVC ONE (13:30)
[2022-02-06 13:31] LABS: Basophils # 0.1 K/mcL (0.0-0.2); Basophils % 0.6 %; Eosinophils # 0.5 K/mcL (0.0-0.6); Eosinophils % 5.5 %; Hematocrit 25.9 % (37.5-50.1); Hemoglobin 7.8 g/dL (12.9-16.9); Immature Granulocytes % 1.3 % (0-4); Lymphocytes % 11.5 %; Mean Corpuscular HGB Conc 30.1 g/dL (31.6-35.5); Mean Corpuscular Volume 92.8 fL (83.0-100.0); Mean Platelet Volume 10.8 fL (9.4-12.4); Monocytes # 0.5 K/mcL (0.0-1.3); Monocytes % 5.9 %; Neutrophils # 6.4 K/mcL (1.6-8.9); Platelet Count 198 K/mcL (140-400); Red Blood Count 2.79 M/mcL (4.19-5.50); Red Cell Distribution Width 17.5 % (11.5-14.5); Segmented Neutrophils % 75.2 %; White Blood Count 8.5 K/mcL (4.3-11.1)
[2022-02-06] MEDS: Ipratropium/Albuterol Neb 3 ML IH SCH ×3 (13:35→20:19)
[2022-02-06 13:48] LABS: Albumin 2.6 g/dL (3.5-5.7); Albumin/Globulin Ratio 0.8 (1.1-2.2); Bilirubin,Total 0.5 mg/dL (0.3-1.0); Calcium 8.2 mg/dL (8.6-10.3); Globulin 3.4 g/dL (2.4-3.5); Magnesium 1.6 mg/dL (1.6-2.6); Phosphorous 3.5 mg/dL (2.7-4.5); Potassium 4.4 mEq/L (3.5-5.1)
[2022-02-06] MEDS ORDERED: Insulin Human Regular 5 UNIT in 0.9 % Sodium Chloride 10 ML IV ONE (14:15)
[2022-02-06 14:17] LABS: INR 1.1; Prothrombin Time 12.5 Seconds (9.4-12.1)
[2022-02-06 14:21] LABS: Activated Partial Thrombo Time 33.8 Seconds (26.0-36.0)
[2022-02-06] MEDS ORDERED: 0.9 % Sodium Chloride 500 ML IVC ONE ×2 (14:41→15:06)
[2022-02-06] MEDS ORDERED: Isovue-370 500 ML BOTTLE IVP ONE (15:34)
[2022-02-06 16:33] LABS: VBG HCO3 20 mEq/L (21-27); VBG PCO2 37 mmHg (41-51); VBG PH 7.34 pH Units (7.32-7.42); VBG PO2 54 mmHg (25-50)
[2022-02-06] MEDS ORDERED: Lidocaine -MPF 1% 5 ML AMPUL INFILT ONE (16:40)
[2022-02-06] MEDS ORDERED: carvediloL 6.25 MG TABLET PO SCH (17:00)
[2022-02-06] MEDS ORDERED: carvediloL 25 MG TABLET PO SCH (17:00)
[2022-02-06] MEDS: Piperacillin/Tazobactam 3.375 GM in 0.9 % Sodium Chloride Mini Bag 100 ML IVPB SCH ×2 (17:08→23:12)
[2022-02-06 17:31] LABS: ABG Base Excess -5 mEq/L (-2 to 3); ABG HCO3 20 mEq/L (21-27); ABG Oxygen Saturation 50 % (95-98); ABG PCO2 37 mmHg (35-45); ABG PH 7.35 pH Units (7.32-7.45); ABG PO2 28 mmHg (85-104); ABG TCO2 21 mEq/L (20-26)
[2022-02-06 17:54] LABS: ABG Base Excess -5 mEq/L (-2 to 3); ABG HCO3 20 mEq/L (21-27); ABG Oxygen Saturation 89 % (95-98); ABG PCO2 35 mmHg (35-45); ABG PH 7.37 pH Units (7.32-7.45); ABG PO2 58 mmHg (85-104); ABG TCO2 21 mEq/L (20-26)
[2022-02-06] MEDS ORDERED: *HR* HYDROcodone/Acet 5/325 mg TABLET PO PRN (18:25)
[2022-02-06] MEDS ORDERED: Albumin 25% 25gram/100mL 25 GM/100 ML IV.SOLN IVPB ONE (18:33)
[2022-02-06] MEDS ORDERED: Furosemide 20 MG/2 ML VIAL IVP ONE ×2 (19:30)
[2022-02-06] MEDS: Budesonide/Formoterol 160/4.5 1 PUFF INH IH SCH (20:19)
[2022-02-06] MEDS: Chlorhexidine Rinse 15 ML MOUTHWASH MM SCH (20:59)
[2022-02-07] MEDS: Ipratropium/Albuterol Neb 3 ML IH SCH ×8 (00:12→23:51)
[2022-02-07 03:36] LABS: Basophils % 0.5 %; Eosinophils # 0.2 K/mcL (0.0-0.6); Hematocrit 24.2 % (37.5-50.1); Hemoglobin 7.7 g/dL (12.9-16.9); Immature Granulocytes % 0.5 % (0-4); Lymphocytes # 0.5 K/mcL (0.6-4.6); Lymphocytes % 7.9 %; Mean Corpuscular HGB Conc 31.8 g/dL (31.6-35.5); Mean Corpuscular Hemoglobin 28.7 pg (28.0-33.3); Mean Corpuscular Volume 90.3 fL (83.0-100.0); Mean Platelet Volume 10.7 fL (9.4-12.4); Monocytes # 0.4 K/mcL (0.0-1.3); Monocytes % 6.5 %; Neutrophils # 5.2 K/mcL (1.6-8.9); Platelet Count 187 K/mcL (140-400); Red Blood Count 2.68 M/mcL (4.19-5.50); Red Cell Distribution Width 17.5 % (11.5-14.5); Segmented Neutrophils % 81.6 %; White Blood Count 6.3 K/mcL (4.3-11.1)
[2022-02-07 03:36] LABS: VBG Ionized Calcium 1.14 mmol/L (1.15-1.35)
[2022-02-07 03:58] LABS: Albumin 2.9 g/dL (3.5-5.7); Albumin/Globulin Ratio 0.9 (1.1-2.2); Bilirubin,Direct 0.2 mg/dL (0.0-0.2); Bilirubin,Indirect 0.3 mg/dL (0.0-1.0); Bilirubin,Total 0.5 mg/dL (0.3-1.0); Globulin 3.1 g/dL (2.4-3.5); Magnesium 1.5 mg/dL (1.6-2.6); Phosphorous 4.9 mg/dL (2.7-4.5); Potassium 4.2 mEq/L (3.5-5.1)
[2022-02-07] MEDS: *HR* Enoxaparin 40 MG/0.4 ML SYRINGE SQ SCH (05:36)
[2022-02-07] MEDS: Budesonide/Formoterol 160/4.5 1 PUFF INH IH SCH ×2 (07:25→20:38)
[2022-02-07] MEDS: Aspirin Enteric Coated 81 MG Tablet PO SCH (08:18)
[2022-02-07] MEDS: Chlorhexidine Rinse 15 ML MOUTHWASH MM SCH ×2 (08:18→21:17)
[2022-02-07] MEDS: Piperacillin/Tazobactam 3.375 GM in 0.9 % Sodium Chloride Mini Bag 100 ML IVPB SCH ×2 (08:22→16:41)
[2022-02-07] MEDS: Insulin LISPRO 300 UNITS/3 ML VIAL SUBQ SCH ×5 (08:25→16:43)
[2022-02-07] MEDS: Insulin DETEMIR 100 UNIT/ML X5UNITS SUBQ SCH ×2 (08:26→21:16)
[2022-02-07] MEDS: Lactobacillus 1 EACH CAP.SPRINK PO SCH ×2 (08:26→21:16)
[2022-02-07] MEDS ORDERED: lisinopriL 10 MG TABLET PO SCH (09:00)
[2022-02-07] MEDS ORDERED: Isosorbide MONOnitrate (24 HR) 30 MG TAB.ER.24H PO SCH (09:00)
[2022-02-07] MEDS ORDERED: NIFEdipine XL (24 HR) 60 MG TAB.ER.24 PO SCH ×3 (09:00→11:45)
[2022-02-07] MEDS ORDERED: NIFEdipine XL (24 HR) 30 MG TAB.ER.24 PO SCH (09:00)
[2022-02-07] MEDS ORDERED: D5% in Water 1,000 ML IVC PRN (11:58)
[2022-02-07] MEDS ORDERED: *HR* Dextrose 50 % in Water (Syg) 50 ML SYRINGE IVP PRN (11:58)
[2022-02-07] MEDS ORDERED: Dextrose 4 GM Chewable Tablets PO PRN ×2 (11:58)
[2022-02-07] MEDS ORDERED: Furosemide 20 MG/2 ML VIAL IVP ONE ×2 (17:15→21:00)
[2022-02-07] MEDS ORDERED: Albumin 25% 25gram/100mL 25 GM/100 ML IV.SOLN IVPB ONE ×2 (17:15→18:24)
[2022-02-07] MEDS: *HR* HYDROcodone/Acet 5/325 mg TABLET PO PRN (19:31)
[2022-02-08] MEDS: Piperacillin/Tazobactam 3.375 GM in 0.9 % Sodium Chloride Mini Bag 100 ML IVPB SCH ×4 (00:29→23:38)
[2022-02-08 02:41] LABS: Basophils % 0.6 %; Eosinophils # 0.5 K/mcL (0.0-0.6); Eosinophils % 8.2 %; Hematocrit 25.2 % (37.5-50.1); Hemoglobin 7.9 g/dL (12.9-16.9); Immature Granulocytes % 0.6 % (0-4); Lymphocytes # 0.9 K/mcL (0.6-4.6); Lymphocytes % 13.4 %; Mean Corpuscular HGB Conc 31.3 g/dL (31.6-35.5); Mean Corpuscular Hemoglobin 28.7 pg (28.0-33.3); Mean Corpuscular Volume 91.6 fL (83.0-100.0); Mean Platelet Volume 10.7 fL (9.4-12.4); Monocytes # 0.5 K/mcL (0.0-1.3); Monocytes % 7.4 %; Neutrophils # 4.6 K/mcL (1.6-8.9); Platelet Count 184 K/mcL (140-400); Red Blood Count 2.75 M/mcL (4.19-5.50); Red Cell Distribution Width 18.1 % (11.5-14.5); Segmented Neutrophils % 69.8 %; White Blood Count 6.6 K/mcL (4.3-11.1)
[2022-02-08 02:59] LABS: Bilirubin,Direct 0.1 mg/dL (0.0-0.2); Bilirubin,Indirect 0.2 mg/dL (0.0-1.0); Bilirubin,Total 0.3 mg/dL (0.3-1.0); Globulin 3.1 g/dL (2.4-3.5); Total Protein 6.1 g/dL (6.4-8.9)
[2022-02-08] MEDS: Ipratropium/Albuterol Neb 3 ML IH SCH ×6 (03:57→23:28)
[2022-02-08] MEDS: *HR* Enoxaparin 40 MG/0.4 ML SYRINGE SQ SCH (05:24)
[2022-02-08 07:17] LABS: BUN/Creatinine Ratio 42 (6-26); Blood Urea Nitrogen 56 mg/dL (6-20); Calcium 8.3 mg/dL (8.6-10.3); Carbon Dioxide 25 mEq/L (23-29); Chloride 110 mEq/L (98-107); Glucose 76 mg/dL (70-105); Osmolality,Calculated 306 (280-300); Potassium 4.3 mEq/L (3.5-5.1); Sodium 141 mEq/L (136-145); eGFR For African Americans > 60 (> 60); eGFR For Non-African Americans 55 (> 60)
[2022-02-08] MEDS: Budesonide/Formoterol 160/4.5 1 PUFF INH IH SCH ×2 (07:34→20:04)
[2022-02-08] MEDS ORDERED: amLODIPine 5 MG TABLET PO SCH (09:00)
[2022-02-08] MEDS: Insulin LISPRO 300 UNITS/3 ML VIAL SUBQ SCH ×3 (10:18→17:00)
[2022-02-08] MEDS: Chlorhexidine Rinse 15 ML MOUTHWASH MM SCH (10:22)
[2022-02-08] MEDS: Aspirin Enteric Coated 81 MG Tablet PO SCH (10:31)
[2022-02-08] MEDS: Lactobacillus 1 EACH CAP.SPRINK PO SCH ×2 (10:31→20:06)
[2022-02-08] MEDS: Insulin DETEMIR 100 UNIT/ML X5UNITS SUBQ SCH ×2 (10:32→20:06)
[2022-02-08] MEDS: *HR* HYDROcodone/Acet 5/325 mg TABLET PO PRN (20:12)
[2022-02-09] MEDS: Ipratropium/Albuterol Neb 3 ML IH SCH ×2 (04:25→07:33)
[2022-02-09 04:57] LABS: Basophils % 0.5 %; Eosinophils # 0.5 K/mcL (0.0-0.6); Eosinophils % 8.9 %; Hematocrit 25.8 % (37.5-50.1); Hemoglobin 8.1 g/dL (12.9-16.9); Immature Granulocytes % 0.4 % (0-4); Lymphocytes # 0.8 K/mcL (0.6-4.6); Lymphocytes % 14.1 %; Mean Corpuscular HGB Conc 31.4 g/dL (31.6-35.5); Mean Corpuscular Hemoglobin 29.3 pg (28.0-33.3); Mean Corpuscular Volume 93.5 fL (83.0-100.0); Mean Platelet Volume 10.3 fL (9.4-12.4); Monocytes # 0.6 K/mcL (0.0-1.3); Monocytes % 10.8 %; Neutrophils # 3.6 K/mcL (1.6-8.9); Platelet Count 171 K/mcL (140-400); Red Blood Count 2.76 M/mcL (4.19-5.50); Red Cell Distribution Width 18.2 % (11.5-14.5); Segmented Neutrophils % 65.3 %; White Blood Count 5.5 K/mcL (4.3-11.1)
[2022-02-09 05:14] LABS: BUN/Creatinine Ratio 40 (6-26); Blood Urea Nitrogen 48 mg/dL (6-20); Carbon Dioxide 26 mEq/L (23-29); Chloride 111 mEq/L (98-107); Glucose 153 mg/dL (70-105); Osmolality,Calculated 310 (280-300); Sodium 142 mEq/L (136-145); eGFR For African Americans > 60 (> 60); eGFR For Non-African Americans > 60 (> 60)
[2022-02-09] MEDS: *HR* Enoxaparin 40 MG/0.4 ML SYRINGE SQ SCH (05:22)
[2022-02-09] MEDS: Budesonide/Formoterol 160/4.5 1 PUFF INH IH SCH (07:33)
[2022-02-09] MEDS: Insulin LISPRO 300 UNITS/3 ML VIAL SUBQ SCH ×3 (07:39→16:31)
[2022-02-09] MEDS: Metoprolol XL (24 HR) Succ 25 MG TAB.ER.24H PO SCH (07:47)
[2022-02-09] MEDS: NIFEdipine XL (24 HR) 60 MG TAB.ER.24 PO SCH (07:47)
[2022-02-09] MEDS: Lactobacillus 1 EACH CAP.SPRINK PO SCH ×2 (07:47→21:17)
[2022-02-09] MEDS: Aspirin Enteric Coated 81 MG Tablet PO SCH (07:47)
[2022-02-09] MEDS: Insulin DETEMIR 100 UNIT/ML X5UNITS SUBQ SCH ×2 (07:48→21:30)
[2022-02-09] MEDS: Piperacillin/Tazobactam 3.375 GM in 0.9 % Sodium Chloride Mini Bag 100 ML IVPB SCH ×2 (07:48→16:38)
[2022-02-09] MEDS ORDERED: Ipratropium/Albuterol Neb 3 ML IH PRN (09:56)
[2022-02-09] MEDS ORDERED: Budesonide/Formoterol 160/4.5 1 PUFF INH IH PRN (09:57)
[2022-02-10] MEDS: Piperacillin/Tazobactam 3.375 GM in 0.9 % Sodium Chloride Mini Bag 100 ML IVPB SCH ×4 (04:30→21:52)
[2022-02-10] MEDS: *HR* Enoxaparin 40 MG/0.4 ML SYRINGE SQ SCH (05:13)
[2022-02-10 06:52] LABS: Hematocrit 26.8 % (37.5-50.1); Hemoglobin 8.1 g/dL (12.9-16.9); Mean Corpuscular HGB Conc 30.2 g/dL (31.6-35.5); Mean Corpuscular Volume 92.7 fL (83.0-100.0); Mean Platelet Volume 10.8 fL (9.4-12.4); Platelet Count 182 K/mcL (140-400); Red Blood Count 2.89 M/mcL (4.19-5.50); White Blood Count 6.7 K/mcL (4.3-11.1)
[2022-02-10 07:01] LABS: BUN/Creatinine Ratio 41 (6-26); Blood Urea Nitrogen 51 mg/dL (6-20); Calcium 7.8 mg/dL (8.6-10.3); Carbon Dioxide 24 mEq/L (23-29); Chloride 107 mEq/L (98-107); Glucose 274 mg/dL (70-105); Osmolality,Calculated 309 (280-300); Potassium 4.2 mEq/L (3.5-5.1); Sodium 138 mEq/L (136-145); eGFR For African Americans > 60 (> 60); eGFR For Non-African Americans 59 (> 60)
[2022-02-10] MEDS: NIFEdipine XL (24 HR) 60 MG TAB.ER.24 PO SCH (07:51)
[2022-02-10] MEDS: Metoprolol XL (24 HR) Succ 25 MG TAB.ER.24H PO SCH (07:51)
[2022-02-10] MEDS: Aspirin Enteric Coated 81 MG Tablet PO SCH (07:51)
[2022-02-10] MEDS: Lactobacillus 1 EACH CAP.SPRINK PO SCH ×2 (07:51→21:56)
[2022-02-10] MEDS: Insulin LISPRO 300 UNITS/3 ML VIAL SUBQ SCH ×3 (07:52→16:47)
[2022-02-10] MEDS: Insulin DETEMIR 100 UNIT/ML X5UNITS SUBQ SCH ×2 (09:12→22:00)
[2022-02-10] MEDS ORDERED: Perflutren Lipid Microsphere 1.3 ML in 0.9 % Sodium Chloride 8.7 ML IVP PRN (14:06)
[2022-02-10] MEDS: Budesonide/Formoterol 160/4.5 1 PUFF INH IH SCH (20:24)
[2022-02-11 01:20] LABS: Basophils % 0.5 %; Eosinophils # 0.6 K/mcL (0.0-0.6); Eosinophils % 9.8 %; Hematocrit 27.1 % (37.5-50.1); Hemoglobin 8.6 g/dL (12.9-16.9); Immature Granulocytes % 0.3 % (0-4); Lymphocytes # 0.9 K/mcL (0.6-4.6); Lymphocytes % 13.8 %; Mean Corpuscular HGB Conc 31.7 g/dL (31.6-35.5); Mean Corpuscular Hemoglobin 28.7 pg (28.0-33.3); Mean Corpuscular Volume 90.3 fL (83.0-100.0); Mean Platelet Volume 10.4 fL (9.4-12.4); Monocytes # 0.5 K/mcL (0.0-1.3); Monocytes % 8.4 %; Neutrophils # 4.3 K/mcL (1.6-8.9); Platelet Count 201 K/mcL (140-400); Red Cell Distribution Width 17.9 % (11.5-14.5); Segmented Neutrophils % 67.2 %; White Blood Count 6.3 K/mcL (4.3-11.1)
[2022-02-11 01:32] LABS: INR 1.1; Prothrombin Time 12.2 Seconds (9.4-12.1)
[2022-02-11 01:41] LABS: BUN/Creatinine Ratio 42 (6-26); Blood Urea Nitrogen 50 mg/dL (6-20); Calcium 8.3 mg/dL (8.6-10.3); Carbon Dioxide 23 mEq/L (23-29); Chloride 110 mEq/L (98-107); Glucose 163 mg/dL (70-105); Magnesium 1.8 mg/dL (1.6-2.6); Osmolality,Calculated 309 (280-300); Phosphorous 3.8 mg/dL (2.7-4.5); Potassium 4.2 mEq/L (3.5-5.1); Sodium 141 mEq/L (136-145); eGFR For African Americans > 60 (> 60); eGFR For Non-African Americans > 60 (> 60)
[2022-02-11] MEDS: Piperacillin/Tazobactam 3.375 GM in 0.9 % Sodium Chloride Mini Bag 100 ML IVPB SCH ×3 (05:09→21:04)
[2022-02-11] MEDS: *HR* Enoxaparin 40 MG/0.4 ML SYRINGE SQ SCH (05:10)
[2022-02-11] MEDS: Insulin LISPRO 300 UNITS/3 ML VIAL SUBQ SCH ×3 (07:21→16:34)
[2022-02-11] MEDS: Budesonide/Formoterol 160/4.5 1 PUFF INH IH SCH ×2 (07:35→20:12)
[2022-02-11] MEDS: Aspirin Enteric Coated 81 MG Tablet PO SCH (10:19)
[2022-02-11] MEDS: Metoprolol XL (24 HR) Succ 25 MG TAB.ER.24H PO SCH (10:20)
[2022-02-11] MEDS: Lactobacillus 1 EACH CAP.SPRINK PO SCH ×2 (10:20→21:08)
[2022-02-11] MEDS: NIFEdipine XL (24 HR) 60 MG TAB.ER.24 PO SCH (10:20)
[2022-02-11] MEDS: Insulin DETEMIR 100 UNIT/ML X5UNITS SUBQ SCH ×2 (10:21→22:00)
[2022-02-11 16:25] LABS: Glucose,Pleural Fluid 108 mg/dL (No Ref Range); Glucose,Pleural Fluid 113 mg/dL (No Ref Range); LDH,Pleural Fluid 48 Units/L (No Ref Range); LDH,Pleural Fluid 50 Units/L (No Ref Range); Total Protein,Pleural Fluid < 2.0 g/dL
[2022-02-11 16:46] LABS: Basophils,Pleural Fluid 0 %; Eosinophils,Pleural Fluid 0 %
[2022-02-11 16:49] LABS: RBC,Pleural Fluid < 2000 RBC/mcL
[2022-02-11 16:50] LABS: Appearance of Pleural Fl Clear (Clear)
[2022-02-11 16:52] LABS: RBC,Pleural Fluid < 2000 RBC/mcL
[2022-02-11 16:54] LABS: Basophils,Pleural Fluid 0 %; Eosinophils,Pleural Fluid 0 %
[2022-02-11 16:55] LABS: Appearance of Pleural Fl Clear (Clear)
[2022-02-11] MEDS: *HR* HYDROcodone/Acet 5/325 mg TABLET PO PRN (21:08)
[2022-02-12] MEDS: Piperacillin/Tazobactam 3.375 GM in 0.9 % Sodium Chloride Mini Bag 100 ML IVPB SCH ×2 (04:13→11:33)
[2022-02-12] MEDS: *HR* Enoxaparin 40 MG/0.4 ML SYRINGE SQ SCH (05:31)
[2022-02-12 06:36] LABS: Basophils % 0.6 %; Eosinophils # 0.6 K/mcL (0.0-0.6); Eosinophils % 10.2 %; Hemoglobin 8.6 g/dL (12.9-16.9); Immature Granulocytes % 0.3 % (0-4); Lymphocytes # 0.9 K/mcL (0.6-4.6); Lymphocytes % 13.6 %; Mean Corpuscular HGB Conc 30.7 g/dL (31.6-35.5); Mean Corpuscular Hemoglobin 27.7 pg (28.0-33.3); Mean Corpuscular Volume 90.3 fL (83.0-100.0); Mean Platelet Volume 10.7 fL (9.4-12.4); Monocytes # 0.5 K/mcL (0.0-1.3); Monocytes % 8.5 %; Neutrophils # 4.2 K/mcL (1.6-8.9); Platelet Count 188 K/mcL (140-400); Red Cell Distribution Width 17.4 % (11.5-14.5); Segmented Neutrophils % 66.8 %; White Blood Count 6.3 K/mcL (4.3-11.1)
[2022-02-12 06:52] LABS: BUN/Creatinine Ratio 39 (6-26); Blood Urea Nitrogen 44 mg/dL (6-20); Carbon Dioxide 25 mEq/L (23-29); Chloride 109 mEq/L (98-107); Glucose 115 mg/dL (70-105); Magnesium 1.8 mg/dL (1.6-2.6); Osmolality,Calculated 302 (280-300); Sodium 140 mEq/L (136-145); eGFR For African Americans > 60 (> 60); eGFR For Non-African Americans > 60 (> 60)
[2022-02-12] MEDS: Insulin LISPRO 300 UNITS/3 ML VIAL SUBQ SCH ×3 (07:23→16:44)
[2022-02-12] MEDS: Aspirin Enteric Coated 81 MG Tablet PO SCH (08:59)
[2022-02-12] MEDS ORDERED: Spironolactone 25 MG TABLET PO SCH (09:00)
[2022-02-12] MEDS: Metoprolol XL (24 HR) Succ 25 MG TAB.ER.24H PO SCH (09:00)
[2022-02-12] MEDS: NIFEdipine XL (24 HR) 60 MG TAB.ER.24 PO SCH (09:00)
[2022-02-12] MEDS: Lactobacillus 1 EACH CAP.SPRINK PO SCH ×2 (09:00→20:38)
[2022-02-12] MEDS: Insulin DETEMIR 100 UNIT/ML X5UNITS SUBQ SCH ×2 (09:03→20:38)
[2022-02-13] MEDS: *HR* Enoxaparin 40 MG/0.4 ML SYRINGE SQ SCH (04:37)
[2022-02-13 04:40] LABS: Basophils % 0.5 %; Eosinophils # 0.8 K/mcL (0.0-0.6); Eosinophils % 12.9 %; Hematocrit 27.9 % (37.5-50.1); Hemoglobin 8.7 g/dL (12.9-16.9); Immature Granulocytes % 0.5 % (0-4); Lymphocytes # 0.9 K/mcL (0.6-4.6); Lymphocytes % 15.2 %; Mean Corpuscular HGB Conc 31.2 g/dL (31.6-35.5); Mean Corpuscular Hemoglobin 28.2 pg (28.0-33.3); Mean Corpuscular Volume 90.6 fL (83.0-100.0); Mean Platelet Volume 10.4 fL (9.4-12.4); Monocytes # 0.5 K/mcL (0.0-1.3); Monocytes % 8.5 %; Neutrophils # 3.7 K/mcL (1.6-8.9); Platelet Count 201 K/mcL (140-400); Red Blood Count 3.08 M/mcL (4.19-5.50); Red Cell Distribution Width 16.9 % (11.5-14.5); Segmented Neutrophils % 62.4 %; White Blood Count 5.9 K/mcL (4.3-11.1)
[2022-02-13 05:02] LABS: BUN/Creatinine Ratio 38 (6-26); Blood Urea Nitrogen 41 mg/dL (6-20); Calcium 8.1 mg/dL (8.6-10.3); Carbon Dioxide 24 mEq/L (23-29); Chloride 109 mEq/L (98-107); Glucose 148 mg/dL (70-105); Magnesium 1.8 mg/dL (1.6-2.6); Osmolality,Calculated 301 (280-300); Potassium 3.8 mEq/L (3.5-5.1); Sodium 139 mEq/L (136-145); eGFR For African Americans > 60 (> 60); eGFR For Non-African Americans > 60 (> 60)
[2022-02-13] MEDS: Insulin LISPRO 300 UNITS/3 ML VIAL SUBQ SCH ×3 (07:18→15:52)
[2022-02-13] MEDS: Metoprolol XL (24 HR) Succ 25 MG TAB.ER.24H PO SCH (08:36)
[2022-02-13] MEDS: Lactobacillus 1 EACH CAP.SPRINK PO SCH ×2 (08:36→21:04)
[2022-02-13] MEDS: Aspirin Enteric Coated 81 MG Tablet PO SCH (08:36)
[2022-02-13] MEDS: NIFEdipine XL (24 HR) 60 MG TAB.ER.24 PO SCH (08:36)
[2022-02-13] MEDS: Insulin DETEMIR 100 UNIT/ML X5UNITS SUBQ SCH ×2 (08:39→21:06)
[2022-02-13] MEDS ORDERED: Spironolactone 25 MG TABLET PO SCH (09:00)
[2022-02-13] MEDS: *HR* HYDROcodone/Acet 5/325 mg TABLET PO PRN (21:04)
[2022-02-13 23:48] LABS: Fluid Source for Albumin L PLEURAL FLUID; Fluid Source for Albumin R PLEURAL FLUID
[2022-02-14 05:03] LABS: Basophils % 0.5 %; Eosinophils # 0.6 K/mcL (0.0-0.6); Eosinophils % 10.2 %; Hematocrit 26.8 % (37.5-50.1); Hemoglobin 8.5 g/dL (12.9-16.9); Immature Granulocytes % 0.5 % (0-4); Lymphocytes # 0.9 K/mcL (0.6-4.6); Lymphocytes % 14.1 %; Mean Corpuscular HGB Conc 31.7 g/dL (31.6-35.5); Mean Corpuscular Hemoglobin 28.4 pg (28.0-33.3); Mean Corpuscular Volume 89.6 fL (83.0-100.0); Mean Platelet Volume 10.7 fL (9.4-12.4); Monocytes # 0.5 K/mcL (0.0-1.3); Monocytes % 8.1 %; Neutrophils # 4.1 K/mcL (1.6-8.9); Platelet Count 180 K/mcL (140-400); Red Blood Count 2.99 M/mcL (4.19-5.50); Red Cell Distribution Width 16.8 % (11.5-14.5); Segmented Neutrophils % 66.6 %; White Blood Count 6.2 K/mcL (4.3-11.1)
[2022-02-14 05:26] LABS: BUN/Creatinine Ratio 48 (6-26); Blood Urea Nitrogen 49 mg/dL (6-20); Calcium 8.1 mg/dL (8.6-10.3); Carbon Dioxide 23 mEq/L (23-29); Chloride 108 mEq/L (98-107); Glucose 265 mg/dL (70-105); Magnesium 1.9 mg/dL (1.6-2.6); Osmolality,Calculated 308 (280-300); Sodium 138 mEq/L (136-145); eGFR For African Americans > 60 (> 60); eGFR For Non-African Americans > 60 (> 60)
[2022-02-14] MEDS: *HR* Enoxaparin 40 MG/0.4 ML SYRINGE SQ SCH (06:01)
[2022-02-14] MEDS: Aspirin Enteric Coated 81 MG Tablet PO SCH (08:20)
[2022-02-14] MEDS: Lactobacillus 1 EACH CAP.SPRINK PO SCH (08:20)
[2022-02-14] MEDS: NIFEdipine XL (24 HR) 60 MG TAB.ER.24 PO SCH (08:21)
[2022-02-14] MEDS: Insulin LISPRO 300 UNITS/3 ML VIAL SUBQ SCH ×3 (08:22→17:53)
[2022-02-14] MEDS: Insulin DETEMIR 100 UNIT/ML X5UNITS SUBQ SCH (08:22)
[2022-02-14] MEDS ORDERED: Metoprolol XL (24 HR) Succ 25 MG TAB.ER.24H PO SCH (09:00)
[2022-02-14] MEDS ORDERED: Carbamide Peroxide 150 DROP/15 ML BOTTLE BOTH EARS SCH (09:00)
[2022-02-14] MEDS ORDERED: Spironolactone 25 MG TABLET PO SCH (09:00)
[2022-02-14 13:09] LABS: Adenovirus Not Detected (Not Detect); Bordetella Pertussis Not Detected (Not Detect); Chlamydophila pneumoniae Not Detected (Not Detect); Coronavirus 229E Not Detected (Not Detect); Coronavirus HKU1 Not Detected (Not Detect); Coronavirus NL63 Not Detected (Not Detect); Coronavirus OC43 Not Detected (Not Detect); Human Metapneumovirus Not Detected (Not Detect); Human Rhinovirus/Enterovirus Not Detected (Not Detect); Influenza A Subtype 2009 H1 Not Detected (Not Detect); Influenza B Not Detected (Not Detect); Mycoplasma pneumoniae Not Detected (Not Detect); Parainfluenza Virus 1 Not Detected (Not Detect); Parainfluenza Virus 2 Not Detected (Not Detect); Parainfluenza Virus 3 Not Detected (Not Detect); Parainfluenza Virus 4 Not Detected (Not Detect); Respiratory Syncytial Virus Not Detected (Not Detect); SARS-CoV-2 Not Detected (Not Detect)
[2022-02-14 15:33] VITALS: BP 124/68; PULSE 74; TEMP 98.2; O2SAT 91
== END 2022-02-14 19:03 | DRG 682 ==
LOC: EMEROOARM 16:44 → 3BNU 16:44 → SUATTDRO 23:12 → 3BNU 23:33 → ICNU 01-30 07:15 → 3BNU 01-30 17:12 → 2NENU 02-06 14:33 → SUATTDRO 02-06 17:09 → ICNU 02-06 19:46 → 2ANU 02-07 14:24
PROVIDERS: ADMIT Family Medicine; ATTEND Pharmacist

== ENCOUNTER 2022-03-28 23:54 | Inpatient (IN) ==
[2022-03-29] MEDS ORDERED: Insulin Regular, Human 100 UNIT/ML IV ONE (00:18)
[2022-03-29] MEDS: 0.9 % Sodium Chloride 1,000 ML IVC SCH ×2 (01:10→04:10)
[2022-03-29 01:14] LABS: Bilirubin,Urine Negative (Negative); Blood,Urine Trace (Negative); Clarity,Urine Clear (Clear); Color,Urine Colorless (Yellow); Glucose,Urine (UA) >=1000 mg/dL (Normal); Ketones,Urine 20 mg/dL (Negative); Leukocyte Esterase,Urine Negative (Negative); Nitrite,Urine Negative (Negative); Protein,Urine 100 mg/dL (Neg-Trace); RBC,Urine 0-3 per hpf (0-3); Specific Gravity,Urine 1.023 (1.010-1.025); Urobilinogen,Urine Normal (Normal)
[2022-03-29 01:16] LABS: Basophils % 0.3 %; Hematocrit 23.8 % (37.5-50.1); Hemoglobin 6.9 g/dL (12.9-16.9); Immature Granulocytes % 0.8 % (0-4); Lymphocytes # 0.7 K/mcL (0.6-4.6); Lymphocytes % 9.7 %; Mean Corpuscular Hemoglobin 27.2 pg (28.0-33.3); Mean Corpuscular Volume 93.7 fL (83.0-100.0); Mean Platelet Volume 10.9 fL (9.4-12.4); Monocytes # 0.9 K/mcL (0.0-1.3); Monocytes % 11.1 %; Platelet Count 251 K/mcL (140-400); Red Blood Count 2.54 M/mcL (4.19-5.50); Red Cell Distribution Width 15.5 % (11.5-14.5); Segmented Neutrophils % 78.1 %; White Blood Count 7.7 K/mcL (4.3-11.1)
[2022-03-29 01:35] LABS: VBG HCO3 12 mEq/L (21-27); VBG PCO2 24 mmHg (41-51); VBG PH 7.31 pH Units (7.32-7.42); VBG PO2 118 mmHg (25-50)
[2022-03-29 01:47] LABS: BUN/Creatinine Ratio 45 (6-26); Blood Urea Nitrogen 60 mg/dL (6-20); Calcium 7.9 mg/dL (8.6-10.3); Carbon Dioxide 12 mEq/L (23-29); Chloride 98 mEq/L (98-107); Glucose 849 mg/dL (70-105); Magnesium 1.8 mg/dL (1.6-2.6); Osmolality,Calculated 325 (280-300); Potassium 4.7 mEq/L (3.5-5.1); Sodium 128 mEq/L (136-145); Troponin I < 0.03 ng/mL (< 0.04); eGFR For African Americans > 60 (> 60); eGFR For Non-African Americans 55 (> 60)
[2022-03-29] MEDS ORDERED: Cefepime HCl 2,000 MG in 0.9 % Sodium Chloride 10 ML IVP ONE (03:20)
[2022-03-29] MEDS ORDERED: *HR* Promethazine 25 MG/ML VIAL IM PRN (03:24)
[2022-03-29] MEDS ORDERED: Naloxone 0.4 MG/ML INJ IVP PRN (03:24)
[2022-03-29] MEDS ORDERED: Ondansetron 4 MG/2 ML VIAL IVP PRN (03:24)
[2022-03-29] MEDS ORDERED: Acetaminophen 325 MG TABLET PO PRN (03:24)
[2022-03-29] MEDS ORDERED: D5% in 0.45% NACL 1,000 ML IVC PRN (03:27)
[2022-03-29] MEDS ORDERED: *HR* Dextrose 50 % in Water (Syg) 50 ML SYRINGE IVP PRN (03:27)
[2022-03-29] MEDS ORDERED: D5% in 0.45% NACL w KCl 20 MEQ/1,000 ML MLS IVC PRN (03:27)
[2022-03-29] MEDS ORDERED: Insulin Regular, Human 100 UNIT/ML IV PRN (03:27)
[2022-03-29] MEDS ORDERED: Cefepime HCl 2,000 MG in 0.9 % Sodium Chloride 10 ML IVP SCH (04:00)
[2022-03-29] MEDS ORDERED: Vancomycin (wt based) 1,000 MG VIAL IVPB SCH (04:00)
[2022-03-29] MEDS ORDERED: 0.9 % Sodium Chloride 250 ML ONE (05:45)
[2022-03-29] MEDS: 0.45 % Sodium Chloride w/KCl 20 MEQ/1,000 ML MLS IVC SCH ×3 (05:49→11:50)
[2022-03-29] MEDS ORDERED: Pantoprazole 40 MG VIAL IVP SCH (06:00)
[2022-03-29 06:09] LABS: VBG HCO3 15 mEq/L (21-27); VBG PCO2 26 mmHg (41-51); VBG PH 7.38 pH Units (7.32-7.42); VBG PO2 123 mmHg (25-50)
[2022-03-29 06:19] LABS: Prothrombin Time 11.5 Seconds (9.4-12.1)
[2022-03-29 06:33] LABS: BUN/Creatinine Ratio 46 (6-26); Blood Urea Nitrogen 58 mg/dL (6-20); Calcium 7.9 mg/dL (8.6-10.3); Carbon Dioxide 16 mEq/L (23-29); Chloride 107 mEq/L (98-107); Glucose 502 mg/dL (70-105); Osmolality,Calculated 317 (280-300); Potassium 4.2 mEq/L (3.5-5.1); Sodium 134 mEq/L (136-145); eGFR For African Americans > 60 (> 60); eGFR For Non-African Americans 59 (> 60)
[2022-03-29] MEDS: *HR* HYDROcodone/Acet 5/325 mg TABLET PO PRN (09:26)
[2022-03-29] MEDS: Aspirin Enteric Coated 81 MG Tablet PO SCH (09:27)
[2022-03-29] MEDS ORDERED: Insulin DETEMIR 100 UNIT/ML X5UNITS SUBQ ONE (10:41)
[2022-03-29 10:43] LABS: C-Reactive Protein 15 mg/L (Less than 10)
[2022-03-29 13:28] LABS: VBG HCO3 19 mEq/L (21-27); VBG PCO2 41 mmHg (41-51); VBG PH 7.27 pH Units (7.32-7.42); VBG PO2 135 mmHg (25-50)
[2022-03-29 13:46] LABS: BUN/Creatinine Ratio 51 (6-26); Blood Urea Nitrogen 52 mg/dL (6-20); Calcium 8.1 mg/dL (8.6-10.3); Carbon Dioxide 19 mEq/L (23-29); Chloride 110 mEq/L (98-107); Glucose 73 mg/dL (70-105); Osmolality,Calculated 295 (280-300); Potassium 4.3 mEq/L (3.5-5.1); Sodium 136 mEq/L (136-145); eGFR For African Americans > 60 (> 60); eGFR For Non-African Americans > 60 (> 60)
[2022-03-29 14:26] LABS: BUN/Creatinine Ratio 52 (6-26); Blood Urea Nitrogen 52 mg/dL (6-20); Calcium 7.8 mg/dL (8.6-10.3); Carbon Dioxide 19 mEq/L (23-29); Chloride 110 mEq/L (98-107); Glucose 102 mg/dL (70-105); Osmolality,Calculated 298 (280-300); Potassium 4.4 mEq/L (3.5-5.1); Sodium 137 mEq/L (136-145); eGFR For African Americans > 60 (> 60); eGFR For Non-African Americans > 60 (> 60)
[2022-03-29] MEDS: hydrALAZINE 25 MG TABLET PO PRN (15:20)
[2022-03-29] MEDS: Megestrol Acetate 400 MG/10 ML UDC PO SCH (17:12)
[2022-03-29] MEDS: Insulin LISPRO 300 UNITS/3 ML VIAL SUBQ SCH (17:12)
[2022-03-29] MEDS: carvediloL 25 MG TABLET PO SCH (17:13)
[2022-03-29] MEDS: Insulin DETEMIR 100 UNIT/ML X5UNITS SUBQ SCH (20:43)
[2022-03-29] MEDS: Lactobacillus 1 EACH CAP.SPRINK PO SCH (20:53)
[2022-03-29] MEDS: NIFEdipine XL (24 HR) 60 MG TAB.ER.24 PO SCH (20:53)
[2022-03-30 02:06] LABS: Hematocrit 26.7 % (37.5-50.1); Mean Corpuscular HGB Conc 33.3 g/dL (31.6-35.5); Mean Corpuscular Hemoglobin 27.7 pg (28.0-33.3); Mean Platelet Volume 10.5 fL (9.4-12.4); Platelet Count 246 K/mcL (140-400); Red Blood Count 3.21 M/mcL (4.19-5.50); Red Cell Distribution Width 16.3 % (11.5-14.5); White Blood Count 8.6 K/mcL (4.3-11.1)
[2022-03-30 02:11] LABS: Hemoglobin 8.9 g/dL (12.9-16.9); Mean Corpuscular Volume 83.2 fL (83.0-100.0)
[2022-03-30 02:31] LABS: BUN/Creatinine Ratio 53 (6-26); Blood Urea Nitrogen 49 mg/dL (6-20); Calcium 7.8 mg/dL (8.6-10.3); Carbon Dioxide 17 mEq/L (23-29); Chloride 110 mEq/L (98-107); Glucose 100 mg/dL (70-105); Osmolality,Calculated 293 (280-300); Potassium 4.4 mEq/L (3.5-5.1); Sodium 135 mEq/L (136-145); eGFR For African Americans > 60 (> 60); eGFR For Non-African Americans > 60 (> 60)
[2022-03-30 04:31] LABS: Estimated Average Glucose 197 mg/dl; Hemoglobin A1C 8.5 %
[2022-03-30] MEDS: Insulin LISPRO 300 UNITS/3 ML VIAL SUBQ SCH ×3 (07:45→16:48)
[2022-03-30] MEDS: Isosorbide MONOnitrate (24 HR) 30 MG TAB.ER.24H PO SCH (07:51)
[2022-03-30] MEDS: carvediloL 25 MG TABLET PO SCH ×2 (07:51→16:48)
[2022-03-30] MEDS: Lactobacillus 1 EACH CAP.SPRINK PO SCH ×2 (07:51→22:07)
[2022-03-30] MEDS: Cholecalciferol (D-3) 1,000 UNIT (25MCG) TABLET PO SCH (07:51)
[2022-03-30] MEDS: Zinc Sulfate 220 MG CAPSULE PO SCH (07:51)
[2022-03-30] MEDS: Aspirin Enteric Coated 81 MG Tablet PO SCH (07:51)
[2022-03-30] MEDS: Furosemide 40 MG TABLET PO SCH (07:51)
[2022-03-30] MEDS: NIFEdipine XL (24 HR) 60 MG TAB.ER.24 PO SCH ×2 (07:51→22:07)
[2022-03-30] MEDS: Megestrol Acetate 400 MG/10 ML UDC PO SCH ×2 (07:52→16:49)
[2022-03-30] MEDS: Insulin DETEMIR 100 UNIT/ML X5UNITS SUBQ SCH (22:12)
[2022-03-31] MEDS: hydrALAZINE 25 MG TABLET PO PRN (03:44)
[2022-03-31] MEDS: *HR* HYDROcodone/Acet 5/325 mg TABLET PO PRN (03:44)
[2022-03-31 04:02] LABS: Hematocrit 25.3 % (37.5-50.1); Hemoglobin 8.3 g/dL (12.9-16.9); Mean Corpuscular HGB Conc 32.8 g/dL (31.6-35.5); Mean Corpuscular Hemoglobin 27.7 pg (28.0-33.3); Mean Corpuscular Volume 84.3 fL (83.0-100.0); Platelet Count 226 K/mcL (140-400); Red Cell Distribution Width 16.7 % (11.5-14.5); White Blood Count 6.8 K/mcL (4.3-11.1)
[2022-03-31 04:22] LABS: BUN/Creatinine Ratio 59 (6-26); Blood Urea Nitrogen 49 mg/dL (6-20); Calcium 7.9 mg/dL (8.6-10.3); Carbon Dioxide 19 mEq/L (23-29); Chloride 109 mEq/L (98-107); Glucose 175 mg/dL (70-105); Osmolality,Calculated 297 (280-300); Potassium 4.2 mEq/L (3.5-5.1); Sodium 135 mEq/L (136-145); eGFR For African Americans > 60 (> 60); eGFR For Non-African Americans > 60 (> 60)
[2022-03-31] MEDS ORDERED: *HR* Propofol 200 MG/20 ML VIAL IVP ONE (10:58)
[2022-03-31] MEDS ORDERED: Lidocaine -MPF 2% 2 ML VIAL ONE ×2 (10:58)
[2022-03-31] MEDS: Insulin LISPRO 300 UNITS/3 ML VIAL SUBQ SCH ×3 (12:19→18:17)
[2022-03-31] MEDS: carvediloL 25 MG TABLET PO SCH ×2 (12:26→18:14)
[2022-03-31] MEDS: Cholecalciferol (D-3) 1,000 UNIT (25MCG) TABLET PO SCH (12:26)
[2022-03-31] MEDS: Isosorbide MONOnitrate (24 HR) 30 MG TAB.ER.24H PO SCH (12:27)
[2022-03-31] MEDS: Aspirin Enteric Coated 81 MG Tablet PO SCH (12:27)
[2022-03-31] MEDS: Furosemide 40 MG TABLET PO SCH (12:27)
[2022-03-31] MEDS: Zinc Sulfate 220 MG CAPSULE PO SCH (12:27)
[2022-03-31] MEDS: Lactobacillus 1 EACH CAP.SPRINK PO SCH ×2 (12:27→19:49)
[2022-03-31] MEDS: NIFEdipine XL (24 HR) 60 MG TAB.ER.24 PO SCH ×2 (12:31→19:49)
[2022-03-31] MEDS: Megestrol Acetate 400 MG/10 ML UDC PO SCH ×2 (12:31→18:14)
[2022-03-31] MEDS: Insulin DETEMIR 100 UNIT/ML X5UNITS SUBQ SCH (19:50)
[2022-04-01] MEDS: Insulin LISPRO 300 UNITS/3 ML VIAL SUBQ SCH ×3 (08:56→17:10)
[2022-04-01] MEDS: carvediloL 25 MG TABLET PO SCH ×2 (09:07→17:09)
[2022-04-01] MEDS: Aspirin Enteric Coated 81 MG Tablet PO SCH (09:07)
[2022-04-01] MEDS: Isosorbide MONOnitrate (24 HR) 30 MG TAB.ER.24H PO SCH (09:08)
[2022-04-01] MEDS: Cholecalciferol (D-3) 1,000 UNIT (25MCG) TABLET PO SCH (09:08)
[2022-04-01] MEDS: Zinc Sulfate 220 MG CAPSULE PO SCH (09:08)
[2022-04-01] MEDS: Lactobacillus 1 EACH CAP.SPRINK PO SCH ×2 (09:08→21:36)
[2022-04-01] MEDS: Furosemide 40 MG TABLET PO SCH (09:08)
[2022-04-01] MEDS: NIFEdipine XL (24 HR) 60 MG TAB.ER.24 PO SCH ×2 (09:08→21:36)
[2022-04-01] MEDS: Megestrol Acetate 400 MG/10 ML UDC PO SCH ×2 (09:11→17:09)
[2022-04-01] MEDS: *HR* HYDROcodone/Acet 5/325 mg TABLET PO PRN (21:36)
[2022-04-01] MEDS: Melatonin 3 MG TABLET PO PRN (21:36)
[2022-04-01] MEDS: Insulin DETEMIR 100 UNIT/ML X5UNITS SUBQ SCH (21:36)
[2022-04-02] MEDS: Lactobacillus 1 EACH CAP.SPRINK PO SCH ×2 (10:02→20:00)
[2022-04-02] MEDS: Cholecalciferol (D-3) 1,000 UNIT (25MCG) TABLET PO SCH (10:02)
[2022-04-02] MEDS: carvediloL 25 MG TABLET PO SCH ×2 (10:02→17:37)
[2022-04-02] MEDS: Aspirin Enteric Coated 81 MG Tablet PO SCH (10:03)
[2022-04-02] MEDS: Isosorbide MONOnitrate (24 HR) 30 MG TAB.ER.24H PO SCH (10:03)
[2022-04-02] MEDS: Megestrol Acetate 400 MG/10 ML UDC PO SCH ×2 (10:03→20:03)
[2022-04-02] MEDS: Zinc Sulfate 220 MG CAPSULE PO SCH (10:03)
[2022-04-02] MEDS: Furosemide 40 MG TABLET PO SCH (10:03)
[2022-04-02] MEDS: NIFEdipine XL (24 HR) 60 MG TAB.ER.24 PO SCH ×2 (10:03→20:00)
[2022-04-02] MEDS: Insulin LISPRO 300 UNITS/3 ML VIAL SUBQ SCH ×3 (10:06→17:37)
[2022-04-02] MEDS: *HR* HYDROcodone/Acet 5/325 mg TABLET PO PRN (20:00)
[2022-04-02] MEDS: Melatonin 3 MG TABLET PO PRN (20:00)
[2022-04-02] MEDS: Insulin DETEMIR 100 UNIT/ML X5UNITS SUBQ SCH (20:00)
[2022-04-02] MEDS: Leptospermum Honey Gel 44 ML TUBE TP SCH (20:01)
[2022-04-03 05:44] LABS: Basophils % 0.5 %; Eosinophils # 0.2 K/mcL (0.0-0.6); Eosinophils % 2.7 %; Hematocrit 26.3 % (37.5-50.1); Hemoglobin 8.7 g/dL (12.9-16.9); Immature Granulocytes % 0.9 % (0-4); Lymphocytes % 11.6 %; Mean Corpuscular HGB Conc 33.1 g/dL (31.6-35.5); Mean Corpuscular Hemoglobin 27.8 pg (28.0-33.3); Mean Platelet Volume 11.4 fL (9.4-12.4); Monocytes # 0.6 K/mcL (0.0-1.3); Monocytes % 6.9 %; Neutrophils # 6.6 K/mcL (1.6-8.9); Platelet Count 209 K/mcL (140-400); Red Blood Count 3.13 M/mcL (4.19-5.50); Red Cell Distribution Width 17.7 % (11.5-14.5); Segmented Neutrophils % 77.4 %; White Blood Count 8.5 K/mcL (4.3-11.1)
[2022-04-03 06:00] LABS: BUN/Creatinine Ratio 68 (6-26); Blood Urea Nitrogen 63 mg/dL (6-20); Carbon Dioxide 19 mEq/L (23-29); Chloride 109 mEq/L (98-107); Glucose 143 mg/dL (70-105); Osmolality,Calculated 304 (280-300); Potassium 4.4 mEq/L (3.5-5.1); Sodium 137 mEq/L (136-145); eGFR For African Americans > 60 (> 60); eGFR For Non-African Americans > 60 (> 60)
[2022-04-03] MEDS: Cholecalciferol (D-3) 1,000 UNIT (25MCG) TABLET PO SCH (08:45)
[2022-04-03] MEDS: Isosorbide MONOnitrate (24 HR) 30 MG TAB.ER.24H PO SCH (08:45)
[2022-04-03] MEDS: Insulin LISPRO 300 UNITS/3 ML VIAL SUBQ SCH ×3 (08:45→16:58)
[2022-04-03] MEDS: NIFEdipine XL (24 HR) 60 MG TAB.ER.24 PO SCH ×2 (08:45→23:05)
[2022-04-03] MEDS: Aspirin Enteric Coated 81 MG Tablet PO SCH (08:45)
[2022-04-03] MEDS: Lactobacillus 1 EACH CAP.SPRINK PO SCH ×2 (08:45→23:05)
[2022-04-03] MEDS: Zinc Sulfate 220 MG CAPSULE PO SCH (08:45)
[2022-04-03] MEDS: carvediloL 25 MG TABLET PO SCH ×2 (08:45→16:58)
[2022-04-03] MEDS: Furosemide 40 MG TABLET PO SCH (08:45)
[2022-04-03] MEDS: Megestrol Acetate 400 MG/10 ML UDC PO SCH ×3 (08:45→17:00)
[2022-04-03] MEDS: Leptospermum Honey Gel 44 ML TUBE TP SCH ×2 (08:46→23:25)
[2022-04-03 09:51] LABS: Influenza A PCR Negative (Negative); Influenza B PCR Negative (Negative); Resp. Syncytial Virus PCR Negative (Negative)
[2022-04-03 09:52] LABS: SARS-CoV-2 by PCR (In House) Negative (Negative)
[2022-04-03] MEDS: Cefepime HCl 2,000 MG in 0.9 % Sodium Chloride 20 ML IVP SCH ×2 (12:30→23:16)
[2022-04-03] MEDS: Azithromycin 500 MG in 0.9 % Sodium Chloride 250 ML IVPB SCH (12:30)
[2022-04-03] MEDS: Melatonin 3 MG TABLET PO PRN (23:05)
[2022-04-03] MEDS: Insulin DETEMIR 100 UNIT/ML X5UNITS SUBQ SCH (23:08)
[2022-04-04] MEDS: Cefepime HCl 2,000 MG in 0.9 % Sodium Chloride 20 ML IVP SCH ×2 (05:09→17:09)
[2022-04-04] MEDS: Insulin LISPRO 300 UNITS/3 ML VIAL SUBQ SCH ×3 (10:43→17:10)
[2022-04-04] MEDS: Zinc Sulfate 220 MG CAPSULE PO SCH (10:43)
[2022-04-04] MEDS: Lactobacillus 1 EACH CAP.SPRINK PO SCH (10:43)
[2022-04-04] MEDS: Furosemide 40 MG TABLET PO SCH (10:43)
[2022-04-04] MEDS: Cholecalciferol (D-3) 1,000 UNIT (25MCG) TABLET PO SCH (10:43)
[2022-04-04] MEDS: Aspirin Enteric Coated 81 MG Tablet PO SCH (10:43)
[2022-04-04] MEDS: carvediloL 25 MG TABLET PO SCH ×2 (10:43→17:09)
[2022-04-04] MEDS: NIFEdipine XL (24 HR) 60 MG TAB.ER.24 PO SCH (10:43)
[2022-04-04] MEDS: Leptospermum Honey Gel 44 ML TUBE TP SCH (10:44)
[2022-04-04] MEDS: Isosorbide MONOnitrate (24 HR) 30 MG TAB.ER.24H PO SCH (10:44)
[2022-04-04] MEDS: Megestrol Acetate 400 MG/10 ML UDC PO SCH (10:45)
[2022-04-04 11:05] LABS: Basophils % 0.4 %; Eosinophils # 0.2 K/mcL (0.0-0.6); Eosinophils % 2.2 %; Hematocrit 28.2 % (37.5-50.1); Hemoglobin 9.3 g/dL (12.9-16.9); Immature Granulocytes % 0.7 % (0-4); Lymphocytes # 0.6 K/mcL (0.6-4.6); Lymphocytes % 6.9 %; Mean Corpuscular Hemoglobin 28.9 pg (28.0-33.3); Mean Corpuscular Volume 87.6 fL (83.0-100.0); Mean Platelet Volume 10.7 fL (9.4-12.4); Monocytes # 0.5 K/mcL (0.0-1.3); Monocytes % 5.6 %; Neutrophils # 7.8 K/mcL (1.6-8.9); Platelet Count 217 K/mcL (140-400); Red Blood Count 3.22 M/mcL (4.19-5.50); Red Cell Distribution Width 18.3 % (11.5-14.5); Segmented Neutrophils % 84.2 %; White Blood Count 9.2 K/mcL (4.3-11.1)
[2022-04-04 11:10] VITALS: BP 116/65; PULSE 63; TEMP 97.7; O2SAT 95
[2022-04-04 11:38] LABS: BUN/Creatinine Ratio 70 (6-26); Blood Urea Nitrogen 65 mg/dL (6-20); Calcium 7.9 mg/dL (8.6-10.3); Carbon Dioxide 20 mEq/L (23-29); Chloride 110 mEq/L (98-107); Glucose 135 mg/dL (70-105); Osmolality,Calculated 303 (280-300); Sodium 136 mEq/L (136-145); eGFR For African Americans > 60 (> 60); eGFR For Non-African Americans > 60 (> 60)
[2022-04-04] MEDS: Azithromycin 500 MG in 0.9 % Sodium Chloride 250 ML IVPB SCH (12:32)
== END 2022-04-04 17:45 | DRG 637 ==
LOC: EMEROOARM 23:54 → 2NNU 23:54 → SUATTDRO 03-29 03:17 → 2NNU 03-29 05:04 → 3NENU 03-29 22:19
PROVIDERS: ADMIT Internal Medicine; ATTEND Family Medicine

== ENCOUNTER 2022-04-08 13:42 | Inpatient (IN) ==
[2022-04-08] MEDS ORDERED: *HR* Atropine Sulfate 1 MG/10 ML SYRINGE IV ONE (13:46)
[2022-04-08] MEDS ORDERED: 0.9 % Sodium Chloride 500 ML IVC ONE (13:47)
[2022-04-08 14:06] LABS: Basophils % 0.2 %; Eosinophils # 0.1 K/mcL (0.0-0.6); Eosinophils % 0.8 %; Hematocrit 22.5 % (37.5-50.1); Immature Granulocytes % 0.4 % (0-4); Lymphocytes % 9.6 %; Mean Corpuscular HGB Conc 32.4 g/dL (31.6-35.5); Mean Corpuscular Hemoglobin 28.3 pg (28.0-33.3); Mean Corpuscular Volume 87.2 fL (83.0-100.0); Mean Platelet Volume 11.5 fL (9.4-12.4); Monocytes # 0.7 K/mcL (0.0-1.3); Monocytes % 7.4 %; Neutrophils # 8.1 K/mcL (1.6-8.9); Nucleated Red Blood Cells 0.2 /100 WBC (0); Platelet Count 204 K/mcL (140-400); Red Blood Count 2.58 M/mcL (4.19-5.50); Red Cell Distribution Width 18.9 % (11.5-14.5); Segmented Neutrophils % 81.6 %; White Blood Count 9.9 K/mcL (4.3-11.1)
[2022-04-08 14:08] LABS: Hemoglobin 7.3 g/dL (12.9-16.9)
[2022-04-08 14:13] LABS: INR 1.2; Prothrombin Time 13.3 Seconds (9.4-12.1)
[2022-04-08] MEDS ORDERED: levoFLOXacin 750 MG/150 ML 750 MG/150 ML BAG IVPB ONE (14:14)
[2022-04-08 14:26] LABS: BUN/Creatinine Ratio 52 (6-26); Blood Urea Nitrogen 73 mg/dL (6-20); Calcium 7.8 mg/dL (8.6-10.3); Carbon Dioxide 17 mEq/L (23-29); Chloride 109 mEq/L (98-107); Glucose 233 mg/dL (70-105); Osmolality,Calculated 307 (280-300); Potassium 5.1 mEq/L (3.5-5.1); Sodium 134 mEq/L (136-145); Troponin I < 0.03 ng/mL (< 0.04); eGFR For African Americans > 60 (> 60); eGFR For Non-African Americans 52 (> 60)
[2022-04-08] MEDS ORDERED: *HR* EPINEPHrine 100 MCG/10 ML SYRINGE IVP PRN (15:03)
[2022-04-08] MEDS ORDERED: *HR* EPINEPHrine 100 MCG/10 ML SYRINGE IVP ONE (15:04)
[2022-04-08] MEDS ORDERED: 0.9 % Sodium Chloride 1,000 ML ONE (15:07)
[2022-04-08 15:15] LABS: Influenza A PCR Negative (Negative); Influenza B PCR Negative (Negative); Resp. Syncytial Virus PCR Negative (Negative)
[2022-04-08 15:18] LABS: SARS-CoV-2 by PCR (In House) Positive (Negative)
[2022-04-08 15:19] LABS: Bacteria,Urine Few per hpf (None-Few); Bilirubin,Urine Negative (Negative); Blood,Urine Negative (Negative); Budding Yeast,Urine Moderate per hpf (None Seen); Clarity,Urine Turbid (Clear); Color,Urine Yellow (Yellow); Glucose,Urine (UA) Normal (Normal); Hyaline Casts,Urine Few per lpf (None Seen); Ketones,Urine Negative (Negative); Leukocyte Esterase,Urine Moderate (Negative); Mucus,Urine Few per lpf (None-Few); Nitrite,Urine Negative (Negative); Protein,Urine >=300 mg/dL (Neg-Trace); Specific Gravity,Urine 1.018 (1.010-1.025); Squamous Epithelial Cell,Urine Few per hpf (None-Few); Urobilinogen,Urine Normal (Normal); WBC,Urine 30-50 per hpf (0-3)
[2022-04-08] MEDS ORDERED: Piperacillin/Tazobactam 3.375 GM in 0.9 % Sodium Chloride Mini Bag 100 ML IVPB ONE (15:27)
[2022-04-08] MEDS ORDERED: *HR* Norepinephrine 4 MG/4 ML VIAL IVC ONE (15:31)
[2022-04-08] MEDS ORDERED: 0.9 % Sodium Chloride 250 ML ONE ×2 (15:31→21:38)
[2022-04-08] MEDS: Norepinephrine 4 MG/254 ML IV.SOLN IVC SCH (15:38)
[2022-04-08] MEDS ORDERED: *HR* Atropine Sulfate 1 MG/10 ML SYRINGE IVP ONE (15:47)
[2022-04-08] MEDS ORDERED: 0.9 % Sodium Chloride 500 ML ONE (15:58)
[2022-04-08] MEDS ORDERED: *HR* HYDROcodone/Acet 5/325 mg TABLET PO PRN (20:19)
[2022-04-08] MEDS ORDERED: Vancomycin (wt based) 1,000 MG VIAL IVPB SCH (21:00)
[2022-04-08] MEDS ORDERED: Insulin DETEMIR 100 UNIT/ML X5UNITS SUBQ SCH (21:00)
[2022-04-08] MEDS ORDERED: Vancomycin 1,000 MG VIAL ONE (21:38)
[2022-04-08] MEDS: Lactobacillus 1 EACH CAP.SPRINK PO SCH (23:02)
[2022-04-09 04:36] LABS: Basophils % 0.3 %; Eosinophils % 0.2 %; Hematocrit 27.2 % (37.5-50.1); Hemoglobin 8.4 g/dL (12.9-16.9); Immature Granulocytes % 0.6 % (0-4); Lymphocytes # 0.8 K/mcL (0.6-4.6); Lymphocytes % 7.5 %; Mean Corpuscular HGB Conc 30.9 g/dL (31.6-35.5); Mean Corpuscular Hemoglobin 27.9 pg (28.0-33.3); Mean Corpuscular Volume 90.4 fL (83.0-100.0); Mean Platelet Volume 11.3 fL (9.4-12.4); Monocytes # 0.8 K/mcL (0.0-1.3); Monocytes % 7.2 %; Neutrophils # 9.2 K/mcL (1.6-8.9); Nucleated Red Blood Cells 0.2 /100 WBC (0); Platelet Count 237 K/mcL (140-400); Red Blood Count 3.01 M/mcL (4.19-5.50); Red Cell Distribution Width 18.6 % (11.5-14.5); Segmented Neutrophils % 84.2 %; White Blood Count 10.9 K/mcL (4.3-11.1)
[2022-04-09 04:38] LABS: VBG Ionized Calcium 1.14 mmol/L (1.15-1.35)
[2022-04-09 04:57] LABS: Albumin 2.6 g/dL (3.5-5.7); Albumin/Globulin Ratio 0.7 (1.1-2.2); Bilirubin,Total 0.4 mg/dL (0.3-1.0); Calcium 7.6 mg/dL (8.6-10.3); Globulin 3.9 g/dL (2.4-3.5); Phosphorous 5.6 mg/dL (2.7-4.5); Total Protein 6.5 g/dL (6.4-8.9)
[2022-04-09] MEDS: Lactobacillus 1 EACH CAP.SPRINK PO SCH ×2 (08:14→22:16)
[2022-04-09] MEDS ORDERED: Piperacillin/Tazobactam 3.375 GM in 0.9 % Sodium Chloride Mini Bag 100 ML IVPB SCH ×2 (09:00→19:00)
[2022-04-09] MEDS ORDERED: Insulin DETEMIR 100 UNIT/ML X5UNITS SUBQ SCH ×2 (09:00→21:00)
[2022-04-09] MEDS ORDERED: Zinc Sulfate 220 MG CAPSULE PO SCH (09:00)
[2022-04-09] MEDS ORDERED: Vancomycin 1,500 MG/265 ML IV.SOLN IVPB SCH (10:00)
[2022-04-09] MEDS ORDERED: Vancomycin 1,250 MG/262.5 ML IV.SOLN IVPB SCH (10:00)
[2022-04-09] MEDS: Norepinephrine 4 MG/254 ML IV.SOLN IVC SCH (11:05)
[2022-04-09] MEDS ORDERED: D5% in Water 1,000 ML IVC PRN ×2 (11:27→13:39)
[2022-04-09] MEDS ORDERED: Dextrose 4 GM Chewable Tablets PO PRN ×4 (11:27→13:39)
[2022-04-09] MEDS ORDERED: Insulin LISPRO 300 UNITS/3 ML VIAL SUBQ SCH (11:30)
[2022-04-09] MEDS: *HR* Dextrose 50 % in Water (Syg) 50 ML SYRINGE IVP PRN ×3 (11:33→16:04)
[2022-04-09] MEDS ORDERED: Norepinephrine 4 MG/254 ML IV.SOLN IVC SCH (13:39)
[2022-04-09] MEDS: Insulin LISPRO 300 UNITS/3 ML VIAL SUBQ SCH (14:55)
[2022-04-09] MEDS: hydrALAZINE 25 MG TABLET PO SCH ×2 (14:55→22:16)
[2022-04-09] MEDS: Piperacillin/Tazobactam 3.375 GM in 0.9 % Sodium Chloride Mini Bag 100 ML IVPB SCH (17:39)
[2022-04-09 17:56] LABS: mecA/C Methicillin-Resist Gene DETECTED (Not Detect)
[2022-04-09 17:57] LABS: A.calcoaceticus-baumannii cplx Not Detected (Not Detect); Bacteroides fragilis by PCR Not Detected (Not Detect); Candida albicans by PCR Not Detected (Not Detect); Candida auris by PCR Not Detected (Not Detect); Candida glabrata by PCR Not Detected (Not Detect); Candida krusei by PCR Not Detected (Not Detect); Candida parapsilosis by PCR Not Detected (Not Detect); Candida tropicalis by PCR Not Detected (Not Detect); Crypto. neoformans/gattii PCR Not Detected (Not Detect); Enterobacter cloacae Cmplx PCR Not Detected (Not Detect); Enterobacterales by PCR Not Detected (Not Detect); Enterococcus faecalis by PCR Not Detected (Not Detect); Enterococcus faecium by PCR Not Detected (Not Detect); Escherichia coli by PCR Not Detected (Not Detect); Klebs. pneumoniae group by PCR Not Detected (Not Detect); Klebsiella aerogenes by PCR Not Detected (Not Detect); Klebsiella oxytoca by PCR Not Detected (Not Detect); Proteus by PCR Not Detected (Not Detect); Pseudomonas aeruginosa by PCR Not Detected (Not Detect); Salmonella species by PCR Not Detected (Not Detect); Serratia marcescens by PCR Not Detected (Not Detect); Staph epidermidis by PCR DETECTED (Not Detect); Staph lugdunensis by PCR Not Detected (Not Detect); Staphylococcus aureus by PCR Not Detected (Not Detect); Stenotrophomonas maltophilia Not Detected (Not Detect); Streptococcus agalactiae(B)PCR Not Detected (Not Detect); Streptococcus by PCR Not Detected (Not Detect); Streptococcus pneumoniae PCR Not Detected (Not Detect); Streptococcus pyogenes (A) PCR Not Detected (Not Detect)
[2022-04-10 01:46] LABS: Basophils # 0.1 K/mcL (0.0-0.2); Basophils % 0.6 %; Eosinophils # 0.5 K/mcL (0.0-0.6); Eosinophils % 5.4 %; Hematocrit 27.3 % (37.5-50.1); Hemoglobin 8.7 g/dL (12.9-16.9); Immature Granulocytes % 0.8 % (0-4); Lymphocytes # 0.8 K/mcL (0.6-4.6); Lymphocytes % 8.9 %; Mean Corpuscular HGB Conc 31.9 g/dL (31.6-35.5); Mean Corpuscular Hemoglobin 28.1 pg (28.0-33.3); Mean Corpuscular Volume 88.1 fL (83.0-100.0); Mean Platelet Volume 11.8 fL (9.4-12.4); Monocytes # 0.6 K/mcL (0.0-1.3); Monocytes % 7.2 %; Neutrophils # 6.9 K/mcL (1.6-8.9); Nucleated Red Blood Cells 0.7 /100 WBC (0); Platelet Count 226 K/mcL (140-400); Red Cell Distribution Width 18.9 % (11.5-14.5); Segmented Neutrophils % 77.1 %
[2022-04-10 02:03] LABS: BUN/Creatinine Ratio 57 (6-26); Blood Urea Nitrogen 78 mg/dL (6-20); Calcium 7.8 mg/dL (8.6-10.3); Carbon Dioxide 15 mEq/L (23-29); Chloride 112 mEq/L (98-107); Glucose 131 mg/dL (70-105); Osmolality,Calculated 307 (280-300); Potassium 4.7 mEq/L (3.5-5.1); Sodium 136 mEq/L (136-145); eGFR For African Americans > 60 (> 60); eGFR For Non-African Americans 53 (> 60)
[2022-04-10] MEDS: Piperacillin/Tazobactam 3.375 GM in 0.9 % Sodium Chloride Mini Bag 100 ML IVPB SCH ×2 (03:25→13:38)
[2022-04-10] MEDS: hydrALAZINE 25 MG TABLET PO SCH ×3 (05:18→20:46)
[2022-04-10] MEDS: *HR* HYDROcodone/Acet 5/325 mg TABLET PO PRN ×2 (08:53→16:58)
[2022-04-10] MEDS: Isosorbide MONOnitrate (24 HR) 30 MG TAB.ER.24H PO SCH (08:53)
[2022-04-10] MEDS: Lactobacillus 1 EACH CAP.SPRINK PO SCH ×2 (08:53→20:48)
[2022-04-10] MEDS: Zinc Sulfate 220 MG CAPSULE PO SCH (08:53)
[2022-04-10] MEDS: Insulin LISPRO 300 UNITS/3 ML VIAL SUBQ SCH ×3 (08:59→16:59)
[2022-04-10] MEDS ORDERED: Insulin DETEMIR 100 UNIT/ML X5UNITS SUBQ SCH (09:00)
[2022-04-10] MEDS ORDERED: NIFEdipine XL (24 HR) 30 MG TAB.ER.24 PO SCH (10:30)
[2022-04-10] MEDS: Vancomycin 1,250 MG/262.5 ML IV.SOLN IVPB SCH (13:39)
[2022-04-10 15:21] LABS: VBG HCO3 18 mEq/L (21-27); VBG PCO2 34 mmHg (41-51); VBG PH 7.33 pH Units (7.32-7.42); VBG PO2 75 mmHg (25-50)
[2022-04-10 15:51] LABS: Magnesium 1.9 mg/dL (1.6-2.6)
[2022-04-10] MEDS ORDERED: NIFEdipine XL (24 HR) 30 MG TAB.ER.24 PO ONE (16:17)
[2022-04-10 18:00] LABS: Prealbumin 19.9 mg/dL (17.0-34.0)
[2022-04-10 18:08] LABS: Procalcitonin 0.58 ng/mL (0.00-0.15)
[2022-04-10] MEDS ORDERED: Piperacillin/Tazobactam 3.375 GM in 0.9 % Sodium Chloride Mini Bag 100 ML IVPB SCH (22:00)
[2022-04-11] MEDS: Piperacillin/Tazobactam 3.375 GM in 0.9 % Sodium Chloride Mini Bag 100 ML IVPB SCH ×4 (03:26→22:41)
[2022-04-11] MEDS: hydrALAZINE 25 MG TABLET PO SCH ×3 (05:31→22:32)
[2022-04-11] MEDS: Lactobacillus 1 EACH CAP.SPRINK PO SCH ×2 (08:45→22:32)
[2022-04-11] MEDS: NIFEdipine XL (24 HR) 60 MG TAB.ER.24 PO SCH (08:45)
[2022-04-11] MEDS: *HR* HYDROcodone/Acet 5/325 mg TABLET PO PRN (08:45)
[2022-04-11] MEDS: Zinc Sulfate 220 MG CAPSULE PO SCH (08:45)
[2022-04-11] MEDS: Insulin DETEMIR 100 UNIT/ML X5UNITS SUBQ SCH ×2 (08:45→22:35)
[2022-04-11] MEDS: Isosorbide MONOnitrate (24 HR) 30 MG TAB.ER.24H PO SCH (08:45)
[2022-04-11] MEDS: Insulin LISPRO 300 UNITS/3 ML VIAL SUBQ SCH ×3 (08:50→17:23)
[2022-04-11 09:25] LABS: Basophils # 0.1 K/mcL (0.0-0.2); Basophils % 0.5 %; Eosinophils # 0.4 K/mcL (0.0-0.6); Eosinophils % 3.6 %; Hematocrit 31.7 % (37.5-50.1); Hemoglobin 9.9 g/dL (12.9-16.9); Immature Granulocytes % 0.7 % (0-4); Lymphocytes # 0.8 K/mcL (0.6-4.6); Lymphocytes % 7.8 %; Mean Corpuscular HGB Conc 31.2 g/dL (31.6-35.5); Mean Corpuscular Hemoglobin 28.2 pg (28.0-33.3); Mean Corpuscular Volume 90.3 fL (83.0-100.0); Mean Platelet Volume 10.9 fL (9.4-12.4); Monocytes # 0.7 K/mcL (0.0-1.3); Monocytes % 6.3 %; Neutrophils # 8.7 K/mcL (1.6-8.9); Platelet Count 261 K/mcL (140-400); Red Blood Count 3.51 M/mcL (4.19-5.50); Red Cell Distribution Width 19.1 % (11.5-14.5); Segmented Neutrophils % 81.1 %; White Blood Count 10.7 K/mcL (4.3-11.1)
[2022-04-11 09:45] LABS: BUN/Creatinine Ratio 53 (6-26); Blood Urea Nitrogen 63 mg/dL (6-20); Calcium 7.9 mg/dL (8.6-10.3); Carbon Dioxide 15 mEq/L (23-29); Chloride 111 mEq/L (98-107); Glucose 260 mg/dL (70-105); Osmolality,Calculated 309 (280-300); Potassium 4.7 mEq/L (3.5-5.1); Sodium 136 mEq/L (136-145); eGFR For African Americans > 60 (> 60); eGFR For Non-African Americans > 60 (> 60)
[2022-04-11] MEDS: Vancomycin 1,250 MG/262.5 ML IV.SOLN IVPB SCH (11:43)
[2022-04-12] MEDS: Piperacillin/Tazobactam 3.375 GM in 0.9 % Sodium Chloride Mini Bag 100 ML IVPB SCH (04:06)
[2022-04-12] MEDS: hydrALAZINE 25 MG TABLET PO SCH ×3 (04:07→21:43)
[2022-04-12] MEDS: levoFLOXacin 750 MG TABLET PO SCH (08:01)
[2022-04-12] MEDS: Lactobacillus 1 EACH CAP.SPRINK PO SCH ×2 (08:02→21:44)
[2022-04-12] MEDS: Isosorbide MONOnitrate (24 HR) 30 MG TAB.ER.24H PO SCH (08:02)
[2022-04-12] MEDS: Cholecalciferol (D-3) 1,000 UNIT (25MCG) TABLET PO SCH (08:02)
[2022-04-12] MEDS: NIFEdipine XL (24 HR) 60 MG TAB.ER.24 PO SCH (08:02)
[2022-04-12] MEDS: Furosemide 40 MG TABLET PO SCH (08:02)
[2022-04-12] MEDS: Zinc Sulfate 220 MG CAPSULE PO SCH (08:02)
[2022-04-12] MEDS: Insulin LISPRO 300 UNITS/3 ML VIAL SUBQ SCH ×3 (08:03→16:13)
[2022-04-12] MEDS: Insulin DETEMIR 100 UNIT/ML X5UNITS SUBQ SCH ×2 (08:05→21:45)
[2022-04-13 04:51] LABS: Basophils % 0.5 %; Eosinophils # 0.4 K/mcL (0.0-0.6); Eosinophils % 4.5 %; Hematocrit 29.6 % (37.5-50.1); Hemoglobin 9.4 g/dL (12.9-16.9); Immature Granulocytes % 0.7 % (0-4); Lymphocytes % 11.3 %; Mean Corpuscular HGB Conc 31.8 g/dL (31.6-35.5); Mean Corpuscular Hemoglobin 27.9 pg (28.0-33.3); Mean Corpuscular Volume 87.8 fL (83.0-100.0); Mean Platelet Volume 10.4 fL (9.4-12.4); Monocytes # 0.5 K/mcL (0.0-1.3); Monocytes % 5.9 %; Neutrophils # 6.5 K/mcL (1.6-8.9); Platelet Count 224 K/mcL (140-400); Red Blood Count 3.37 M/mcL (4.19-5.50); Red Cell Distribution Width 17.9 % (11.5-14.5); Segmented Neutrophils % 77.1 %; White Blood Count 8.5 K/mcL (4.3-11.1)
[2022-04-13 05:04] LABS: BUN/Creatinine Ratio 70 (6-26); Blood Urea Nitrogen 69 mg/dL (6-20); Calcium 7.9 mg/dL (8.6-10.3); Carbon Dioxide 17 mEq/L (23-29); Chloride 107 mEq/L (98-107); Glucose 362 mg/dL (70-105); Magnesium 1.6 mg/dL (1.6-2.6); Osmolality,Calculated 311 (280-300); Phosphorous 3.3 mg/dL (2.7-4.5); Potassium 4.8 mEq/L (3.5-5.1); Sodium 133 mEq/L (136-145); eGFR For African Americans > 60 (> 60); eGFR For Non-African Americans > 60 (> 60)
[2022-04-13] MEDS: hydrALAZINE 25 MG TABLET PO SCH ×3 (06:03→21:33)
[2022-04-13] MEDS: Lactobacillus 1 EACH CAP.SPRINK PO SCH ×2 (08:35→21:33)
[2022-04-13] MEDS: Isosorbide MONOnitrate (24 HR) 30 MG TAB.ER.24H PO SCH (08:35)
[2022-04-13] MEDS: NIFEdipine XL (24 HR) 60 MG TAB.ER.24 PO SCH (08:35)
[2022-04-13] MEDS: Cholecalciferol (D-3) 1,000 UNIT (25MCG) TABLET PO SCH (08:35)
[2022-04-13] MEDS: levoFLOXacin 750 MG TABLET PO SCH (08:35)
[2022-04-13] MEDS: Insulin DETEMIR 100 UNIT/ML X5UNITS SUBQ SCH ×2 (08:36→21:37)
[2022-04-13] MEDS: Insulin LISPRO 300 UNITS/3 ML VIAL SUBQ SCH ×6 (08:36→16:27)
[2022-04-13] MEDS: Zinc Sulfate 220 MG CAPSULE PO SCH (08:36)
[2022-04-13] MEDS: Furosemide 40 MG TABLET PO SCH (08:36)
[2022-04-13] MEDS ORDERED: lisinopriL 20 MG TABLET PO SCH (09:00)
[2022-04-13] MEDS ORDERED: Insulin Human Regular 5 UNIT in 0.9 % Sodium Chloride 10 ML IV ONE (10:10)
[2022-04-14] MEDS: hydrALAZINE 25 MG TABLET PO SCH ×3 (06:42→21:22)
[2022-04-14] MEDS: Insulin LISPRO 300 UNITS/3 ML VIAL SUBQ SCH ×5 (07:49→16:22)
[2022-04-14] MEDS: levoFLOXacin 750 MG TABLET PO SCH (08:26)
[2022-04-14] MEDS: Zinc Sulfate 220 MG CAPSULE PO SCH (08:26)
[2022-04-14] MEDS: NIFEdipine XL (24 HR) 30 MG TAB.ER.24 PO SCH (08:26)
[2022-04-14] MEDS: Cholecalciferol (D-3) 1,000 UNIT (25MCG) TABLET PO SCH (08:26)
[2022-04-14] MEDS: Insulin DETEMIR 100 UNIT/ML X5UNITS SUBQ SCH (08:27)
[2022-04-14] MEDS: lisinopriL 20 MG TABLET PO SCH (08:27)
[2022-04-14] MEDS: Lactobacillus 1 EACH CAP.SPRINK PO SCH ×2 (08:27→21:21)
[2022-04-14] MEDS: Isosorbide MONOnitrate (24 HR) 30 MG TAB.ER.24H PO SCH (08:27)
[2022-04-14] MEDS: Furosemide 40 MG TABLET PO SCH (08:27)
[2022-04-14] MEDS: Nystatin POWDER 30 GM BOTTLE TP SCH ×2 (14:14→21:23)
[2022-04-14] MEDS: *HR* Dextrose 50 % in Water (Syg) 50 ML SYRINGE IVP PRN (16:33)
[2022-04-14] MEDS ORDERED: Insulin DETEMIR 100 UNIT/ML X5UNITS SUBQ SCH ×2 (21:00)
[2022-04-15] MEDS: hydrALAZINE 25 MG TABLET PO SCH ×3 (05:16→21:07)
[2022-04-15] MEDS: Insulin LISPRO 300 UNITS/3 ML VIAL SUBQ SCH ×3 (07:20→17:09)
[2022-04-15] MEDS: carvediloL 6.25 MG TABLET PO SCH ×2 (07:33→17:19)
[2022-04-15] MEDS: Insulin DETEMIR 100 UNIT/ML X5UNITS SUBQ SCH ×2 (08:33→21:08)
[2022-04-15] MEDS: NIFEdipine XL (24 HR) 30 MG TAB.ER.24 PO SCH (08:34)
[2022-04-15] MEDS: Lactobacillus 1 EACH CAP.SPRINK PO SCH ×2 (08:34→21:07)
[2022-04-15] MEDS: Cholecalciferol (D-3) 1,000 UNIT (25MCG) TABLET PO SCH (08:34)
[2022-04-15] MEDS: Isosorbide MONOnitrate (24 HR) 60 MG TAB.ER.24H PO SCH (08:34)
[2022-04-15] MEDS: lisinopriL 20 MG TABLET PO SCH (08:34)
[2022-04-15] MEDS: Zinc Sulfate 220 MG CAPSULE PO SCH (08:34)
[2022-04-15] MEDS: Furosemide 40 MG TABLET PO SCH (08:34)
[2022-04-15] MEDS: levoFLOXacin 750 MG TABLET PO SCH (08:34)
[2022-04-15] MEDS: Nystatin POWDER 30 GM BOTTLE TP SCH ×3 (08:35→21:08)
[2022-04-16 02:41] LABS: BUN/Creatinine Ratio 75 (6-26); Blood Urea Nitrogen 82 mg/dL (6-20); Calcium 8.4 mg/dL (8.6-10.3); Carbon Dioxide 24 mEq/L (23-29); Chloride 104 mEq/L (98-107); Glucose 142 mg/dL (70-105); Magnesium 1.6 mg/dL (1.6-2.6); Osmolality,Calculated 307 (280-300); Phosphorous 3.7 mg/dL (2.7-4.5); Sodium 135 mEq/L (136-145); eGFR For African Americans > 60 (> 60); eGFR For Non-African Americans > 60 (> 60)
[2022-04-16] MEDS ORDERED: Acetaminophen 325 MG TABLET PO ONE (03:20)
[2022-04-16] MEDS: hydrALAZINE 25 MG TABLET PO SCH ×3 (05:29→20:33)
[2022-04-16] MEDS: Insulin LISPRO 300 UNITS/3 ML VIAL SUBQ SCH ×3 (07:30→16:37)
[2022-04-16] MEDS: carvediloL 6.25 MG TABLET PO SCH ×2 (07:42→17:06)
[2022-04-16] MEDS: Lactobacillus 1 EACH CAP.SPRINK PO SCH ×2 (09:00→20:33)
[2022-04-16] MEDS: levoFLOXacin 750 MG TABLET PO SCH (09:00)
[2022-04-16] MEDS: NIFEdipine XL (24 HR) 30 MG TAB.ER.24 PO SCH (09:01)
[2022-04-16] MEDS: Cholecalciferol (D-3) 1,000 UNIT (25MCG) TABLET PO SCH (09:01)
[2022-04-16] MEDS: Zinc Sulfate 220 MG CAPSULE PO SCH (09:01)
[2022-04-16] MEDS: Isosorbide MONOnitrate (24 HR) 60 MG TAB.ER.24H PO SCH (09:01)
[2022-04-16] MEDS: lisinopriL 20 MG TABLET PO SCH (09:01)
[2022-04-16] MEDS: Furosemide 40 MG TABLET PO SCH (09:01)
[2022-04-16] MEDS: Insulin DETEMIR 100 UNIT/ML X5UNITS SUBQ SCH ×2 (09:12→20:33)
[2022-04-16] MEDS: Nystatin POWDER 30 GM BOTTLE TP SCH ×3 (09:12→20:35)
[2022-04-17] MEDS: *HR* Dextrose 50 % in Water (Syg) 50 ML SYRINGE IVP PRN ×2 (04:07→05:01)
[2022-04-17] MEDS: hydrALAZINE 25 MG TABLET PO SCH ×3 (04:08→20:10)
[2022-04-17] MEDS: Insulin LISPRO 300 UNITS/3 ML VIAL SUBQ SCH ×3 (07:33→17:00)
[2022-04-17] MEDS: Isosorbide MONOnitrate (24 HR) 60 MG TAB.ER.24H PO SCH (08:59)
[2022-04-17] MEDS: NIFEdipine XL (24 HR) 30 MG TAB.ER.24 PO SCH (08:59)
[2022-04-17] MEDS: lisinopriL 20 MG TABLET PO SCH (08:59)
[2022-04-17] MEDS: Nystatin POWDER 30 GM BOTTLE TP SCH ×3 (09:00→20:11)
[2022-04-17] MEDS: Lactobacillus 1 EACH CAP.SPRINK PO SCH ×2 (09:00→20:11)
[2022-04-17] MEDS: Insulin DETEMIR 100 UNIT/ML X5UNITS SUBQ SCH ×2 (09:00→20:11)
[2022-04-17] MEDS: carvediloL 6.25 MG TABLET PO SCH ×2 (09:00→17:00)
[2022-04-17] MEDS: Furosemide 40 MG TABLET PO SCH (09:00)
[2022-04-17] MEDS: Cholecalciferol (D-3) 1,000 UNIT (25MCG) TABLET PO SCH (09:00)
[2022-04-17] MEDS: levoFLOXacin 750 MG TABLET PO SCH (09:00)
[2022-04-17] MEDS: Zinc Sulfate 220 MG CAPSULE PO SCH (09:00)
[2022-04-18] MEDS: hydrALAZINE 25 MG TABLET PO SCH ×3 (05:39→21:15)
[2022-04-18] MEDS: Insulin LISPRO 300 UNITS/3 ML VIAL SUBQ SCH ×3 (07:43→18:08)
[2022-04-18] MEDS: NIFEdipine XL (24 HR) 30 MG TAB.ER.24 PO SCH (09:38)
[2022-04-18] MEDS: carvediloL 6.25 MG TABLET PO SCH ×2 (09:39→18:09)
[2022-04-18] MEDS: levoFLOXacin 750 MG TABLET PO SCH (09:39)
[2022-04-18] MEDS: Lactobacillus 1 EACH CAP.SPRINK PO SCH ×2 (09:39→21:17)
[2022-04-18] MEDS: Cholecalciferol (D-3) 1,000 UNIT (25MCG) TABLET PO SCH (09:39)
[2022-04-18] MEDS: Furosemide 40 MG TABLET PO SCH (09:39)
[2022-04-18] MEDS: Isosorbide MONOnitrate (24 HR) 30 MG TAB.ER.24H PO SCH (09:39)
[2022-04-18] MEDS: lisinopriL 20 MG TABLET PO SCH (09:39)
[2022-04-18] MEDS: Nystatin POWDER 30 GM BOTTLE TP SCH ×3 (09:40→21:17)
[2022-04-18] MEDS: Zinc Sulfate 220 MG CAPSULE PO SCH (09:40)
[2022-04-18] MEDS: Insulin DETEMIR 100 UNIT/ML X5UNITS SUBQ SCH ×2 (09:53→21:16)
[2022-04-18] MEDS ORDERED: *HR* Labetalol 20 MG/4 ML SYRINGE IVP ONE (11:03)
[2022-04-19] MEDS: hydrALAZINE 25 MG TABLET PO SCH ×3 (05:26→22:19)
[2022-04-19] MEDS: *HR* Dextrose 50 % in Water (Syg) 50 ML SYRINGE IVP PRN (05:34)
[2022-04-19] MEDS: Insulin LISPRO 300 UNITS/3 ML VIAL SUBQ SCH ×3 (07:49→16:27)
[2022-04-19] MEDS: lisinopriL 20 MG TABLET PO SCH (08:50)
[2022-04-19] MEDS: Lactobacillus 1 EACH CAP.SPRINK PO SCH ×2 (08:50→20:54)
[2022-04-19] MEDS: carvediloL 6.25 MG TABLET PO SCH ×2 (08:50→17:36)
[2022-04-19] MEDS: Isosorbide MONOnitrate (24 HR) 30 MG TAB.ER.24H PO SCH (08:50)
[2022-04-19] MEDS: Furosemide 40 MG TABLET PO SCH (08:50)
[2022-04-19] MEDS: Cholecalciferol (D-3) 1,000 UNIT (25MCG) TABLET PO SCH (08:50)
[2022-04-19] MEDS: NIFEdipine XL (24 HR) 30 MG TAB.ER.24 PO SCH (08:50)
[2022-04-19] MEDS: Zinc Sulfate 220 MG CAPSULE PO SCH (08:51)
[2022-04-19] MEDS: Nystatin POWDER 30 GM BOTTLE TP SCH ×3 (08:51→20:54)
[2022-04-19] MEDS: Insulin DETEMIR 100 UNIT/ML X5UNITS SUBQ SCH ×2 (09:00→20:54)
[2022-04-19 09:06] LABS: Basophils % 0.3 %; Eosinophils # 0.3 K/mcL (0.0-0.6); Eosinophils % 4.4 %; Hematocrit 27.6 % (37.5-50.1); Hemoglobin 8.9 g/dL (12.9-16.9); Immature Granulocytes % 0.3 % (0-4); Lymphocytes # 0.7 K/mcL (0.6-4.6); Lymphocytes % 11.1 %; Mean Corpuscular HGB Conc 32.2 g/dL (31.6-35.5); Mean Corpuscular Hemoglobin 27.6 pg (28.0-33.3); Mean Corpuscular Volume 85.4 fL (83.0-100.0); Mean Platelet Volume 9.9 fL (9.4-12.4); Monocytes # 0.4 K/mcL (0.0-1.3); Neutrophils # 4.7 K/mcL (1.6-8.9); Platelet Count 192 K/mcL (140-400); Red Blood Count 3.23 M/mcL (4.19-5.50); Red Cell Distribution Width 16.1 % (11.5-14.5); Segmented Neutrophils % 76.9 %; White Blood Count 6.1 K/mcL (4.3-11.1)
[2022-04-19 09:27] LABS: BUN/Creatinine Ratio 64 (6-26); Blood Urea Nitrogen 68 mg/dL (6-20); Carbon Dioxide 25 mEq/L (23-29); Chloride 103 mEq/L (98-107); Glucose 221 mg/dL (70-105); Magnesium 1.6 mg/dL (1.6-2.6); Osmolality,Calculated 305 (280-300); Potassium 4.1 mEq/L (3.5-5.1); Sodium 134 mEq/L (136-145); eGFR For African Americans > 60 (> 60); eGFR For Non-African Americans > 60 (> 60)
[2022-04-20] MEDS: hydrALAZINE 25 MG TABLET PO SCH ×3 (05:34→22:40)
[2022-04-20] MEDS: *HR* Dextrose 50 % in Water (Syg) 50 ML SYRINGE IVP PRN (07:32)
[2022-04-20] MEDS: Insulin LISPRO 300 UNITS/3 ML VIAL SUBQ SCH ×3 (07:40→16:22)
[2022-04-20] MEDS: lisinopriL 20 MG TABLET PO SCH (09:58)
[2022-04-20] MEDS: NIFEdipine XL (24 HR) 30 MG TAB.ER.24 PO SCH (09:58)
[2022-04-20] MEDS: Lactobacillus 1 EACH CAP.SPRINK PO SCH ×2 (09:58→20:39)
[2022-04-20] MEDS: Furosemide 40 MG TABLET PO SCH (09:58)
[2022-04-20] MEDS: Isosorbide MONOnitrate (24 HR) 30 MG TAB.ER.24H PO SCH (09:58)
[2022-04-20] MEDS: Zinc Sulfate 220 MG CAPSULE PO SCH (09:58)
[2022-04-20] MEDS: Cholecalciferol (D-3) 1,000 UNIT (25MCG) TABLET PO SCH (09:58)
[2022-04-20] MEDS: Nystatin POWDER 30 GM BOTTLE TP SCH ×3 (09:59→20:39)
[2022-04-20] MEDS: Insulin DETEMIR 100 UNIT/ML X5UNITS SUBQ SCH ×2 (09:59→20:39)
[2022-04-20] MEDS: carvediloL 6.25 MG TABLET PO SCH ×2 (10:00→16:24)
[2022-04-20] MEDS: *HR* HYDROcodone/Acet 5/325 mg TABLET PO PRN (20:52)
[2022-04-21] MEDS: hydrALAZINE 25 MG TABLET PO SCH ×2 (07:18→14:15)
[2022-04-21] MEDS: Zinc Sulfate 220 MG CAPSULE PO SCH (09:33)
[2022-04-21] MEDS: Isosorbide MONOnitrate (24 HR) 30 MG TAB.ER.24H PO SCH (09:33)
[2022-04-21] MEDS: lisinopriL 20 MG TABLET PO SCH (09:33)
[2022-04-21] MEDS: Insulin DETEMIR 100 UNIT/ML X5UNITS SUBQ SCH ×2 (09:34→20:32)
[2022-04-21] MEDS: Furosemide 40 MG TABLET PO SCH (09:34)
[2022-04-21] MEDS: NIFEdipine XL (24 HR) 30 MG TAB.ER.24 PO SCH (09:34)
[2022-04-21] MEDS: Insulin LISPRO 300 UNITS/3 ML VIAL SUBQ SCH ×3 (09:34→16:09)
[2022-04-21] MEDS: Lactobacillus 1 EACH CAP.SPRINK PO SCH ×2 (09:34→20:32)
[2022-04-21] MEDS: Cholecalciferol (D-3) 1,000 UNIT (25MCG) TABLET PO SCH (09:34)
[2022-04-21] MEDS: carvediloL 6.25 MG TABLET PO SCH ×2 (09:34→16:09)
[2022-04-21] MEDS: Nystatin POWDER 30 GM BOTTLE TP SCH ×3 (09:34→20:32)
[2022-04-22] MEDS: hydrALAZINE 25 MG TABLET PO SCH ×2 (02:01→06:26)
[2022-04-22] MEDS: Insulin LISPRO 300 UNITS/3 ML VIAL SUBQ SCH ×2 (07:29→11:04)
[2022-04-22] MEDS: NIFEdipine XL (24 HR) 30 MG TAB.ER.24 PO SCH (07:45)
[2022-04-22] MEDS: Cholecalciferol (D-3) 1,000 UNIT (25MCG) TABLET PO SCH (07:45)
[2022-04-22] MEDS: Lactobacillus 1 EACH CAP.SPRINK PO SCH (07:46)
[2022-04-22] MEDS: Zinc Sulfate 220 MG CAPSULE PO SCH (07:46)
[2022-04-22] MEDS: Furosemide 40 MG TABLET PO SCH (07:46)
[2022-04-22] MEDS: carvediloL 6.25 MG TABLET PO SCH (07:46)
[2022-04-22] MEDS: Isosorbide MONOnitrate (24 HR) 30 MG TAB.ER.24H PO SCH (07:46)
[2022-04-22] MEDS: Insulin DETEMIR 100 UNIT/ML X5UNITS SUBQ SCH (07:46)
[2022-04-22] MEDS: lisinopriL 20 MG TABLET PO SCH (07:46)
[2022-04-22] MEDS: Nystatin POWDER 30 GM BOTTLE TP SCH (07:48)
[2022-04-22] MEDS: *HR* Dextrose 50 % in Water (Syg) 50 ML SYRINGE IVP PRN (08:25)
[2022-04-22 09:42] LABS: Influenza A PCR Negative (Negative); Influenza B PCR Negative (Negative); Resp. Syncytial Virus PCR Negative (Negative)
[2022-04-22 09:45] LABS: SARS-CoV-2 by PCR (In House) Negative (Negative)
[2022-04-22 10:45] VITALS: BP 162/75; PULSE 80; TEMP 98.7; O2SAT 95
== END 2022-04-22 11:26 | DRG 871 ==
LOC: ICNU 13:42 → EMEROOARM 13:42 → ICNU 21:27 → 2ANU 04-09 14:19 → SUATTDRO 04-09 15:55
PROVIDERS: ADMIT Family Medicine; ATTEND Family Medicine